=== PATIENT | male | born 1965 | race Caucasian/White ===

== ENCOUNTER 2016-06-16 13:13 | Emergency (ER) | payer MEDICAID ==
[2016-06-16 13:30] VITALS: BP 118/52
[2016-06-16] MEDS ORDERED: cefTRIAXone 1 GM Vial IM ONE (14:20)
[2016-06-16] MEDS ORDERED: Acetaminophen/HYDROcodone 325-7.5 MG Tab PO ONE (14:20)
--- NOTE | 2016-06-16 15:36 | EDM.PDOC ---
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 L toe now swollen and red h/o DM x 2y, A1c 7 PCP [facility] no h/o MRSA Allergies/ADRs: Allergies No Known Allergies Allergy (Verified 05/06/16 15:18) Home Medications: Ambulatory Orders Aspirin [Agnes Chewable Aspirin] 1 tab PO DAILY 12/24/13 [Confirmed 01/12/15] Divalproex Sodium [Depakote ER] 1,500 mg PO BEDTIME 12/24/13 [Confirmed 01/12/15 ] Furosemide [Lasix] 20 mg PO DAILY 12/24/13 [Confirmed 01/12/15] Gabapentin [Neurontin] 600 mg PO BID 12/24/13 [Confirmed 01/12/15] Hydrocodone/Acetaminophen [Hydrocodon-Acetaminophn 10-325] 1 tab PO BID [Confirmed 01/12/15] Levothyroxine [Synthroid] 50 mcg PO ACBRK 12/24/13 [Confirmed 01/12/15] Multivitamin [Multivitamins] 1 each PO DAILY 12/24/13 [Confirmed 01/12/15] Venlafaxine [Effexor XR] 300 mg PO DAILY 12/24/13 [Confirmed 01/12/15] Vitamin B Complex [B Complex] 1 cap PO DAILY 12/24/13 [Confirmed 01/12/15] atorvaSTATin [Lipitor] 40 mg PO BEDTIME 12/24/13 [Confirmed 01/12/15] rOPINIRole [Requip] 3 mg PO BID 12/24/13 [Confirmed 01/12/15] oxyCODONE HCl [Roxicodone] 5 mg PO DAILY PRN 11/13/14 [Confirmed 01/12/15] Meloxicam 15 mg PO DAILY 01/03/15 [Confirmed 01/12/15] Levofloxacin [Levaquin] 500 mg PO Q24H #10 tablet 01/04/15 [Confirmed 01/12/15] Acetaminophen/HYDROcodone [[place] 325-5 MG] 1 tab PO Q6H PRN #10 tab 06/16/16 Clindamycin Hcl [IMW: Clindamycin HCl] 300 mg PO QID #40 cap 06/16/16 Sulfamethoxazole/Trimethoprim [Sulfamethoxazole-Tmp Ds Tablet] 1 each PO BID # 20 tablet 06/16/16 Past Medical History Other Cardiovascular History: high triglycerides Other Musculoskeletal History: ulcers to bilat feet. R & L gt toes, 3rd toe R foot, 3& 5th toes L foot. Numerous broken bones Other Dermatologic History: ulcers to bilat feet. R & L gt toes, 3rd toe R foot , 3& 5th toes L foot. Open wound on toe 'months.' - Past Surgical History Other Musculoskeletal Surgeries/Procedures:: R shoulder rotator cuff surg, carpal tunnel Social & Family History - Family History Family Medical History: Noncontributory - Tobacco Use Smoking Status *Q: Current Every Day Smoker Years of Tobacco use: 30 Packs/Tins Daily: 1 Used Tobacco, but Quit: No Second Hand Smoke Exposure: Yes - Caffeine Use Caffeine Use: Reports: Coffee - Alcohol Use Days Per Week of Alcohol Use: 0 - Recreational Drug Use Recreational Drug Use: Yes Drug Use in Last 12 Months: Yes Recreational Drug Type: Reports: Marijuana/Hashish Review of Systems - Review of Systems Review Of Systems: See Below Constitutional: Reports: no symptoms Eyes: Reports: no symptoms Ears: Reports: no symptoms Nose: Reports: no symptoms Mouth/Throat: Reports: no symptoms Respiratory: Reports: no symptoms Cardiovascular: Reports: no symptoms GI/Abdominal: Reports: No symptoms Genitourinary: Reports: no symptoms Musculoskeletal: Reports: foot pain Skin: Reports: no symptoms Neurological: Reports: no symptoms Psychiatric: Reports: no symptoms Trauma Exam - Physical Exam Exam: See Below Exam Limited By: No limitations General Appearance: Reports: alert, mild distress Head: Reports: atraumatic, normocephalic Neck: Reports: non-tender Respiratory Exam: Reports: no respiratory distress, lungs clear, normal breath sounds Cardiovascular: Reports: regular rate, rhythm, no edema, no rub Skin: Reports: Other (R great toe with think callus on the lower 1/2 on the inferior aspect, there is cracking and a central opening in the callus over proximal 1st phalange of 5 x 3 cm, into fat layer, no necrosis, no active d/c, toe is inc'd size 25% with slight red and slight warmth. L groin has mild tender on the inner aspect of the thigh and across the inferior groin, there is slight fullness, however no discrete LNs are palpated. No red streaks.) Course - Vital Signs Last Recorded V/S: Last Vital Signs Temp 36.5 C 06/16/16 13:20 Pulse 79 06/16/16 13:20 Resp 18 06/16/16 13:20 BP 118/52 L 06/16/16 13:20 Pulse Ox 99 06/16/16 13:20 - Orders/Labs/Meds Orders: Active Orders 24 hr Category Date Time Status Foot Comp Min 3V Lt [CR] Stat Exams 06/16/16 14:15 Taken CULTURE-TISSUE [MREF] Stat Lab 06/16/16 15:12 Ordered Sulfamethoxazole/Trimethoprim [Septra DS] Med 06/17/16 09:00 Active 1 tab PO DAILY Medication Orders Trimethoprim/Sulfamethoxazole (Septra Ds) 1 tab PO DAILY MADHU Labs: Laboratory Tests 06/16/16 06/16/16 Range/Units 14:40 14:40 WBC 9.4 (4.5-12.0) X10-3/uL RBC 4.45 (4.30-5.75) x10(6)uL Hgb 13.1 (11.5-15.5) g/dL Hct 40.4 (30.0-51.3) % MCV 90.8 (80-96) fL MCH 29.5 (27.7-33.6) pg MCHC 32.5 (32.2-35.4) g/dL RDW 14.0 (11.5-15.5) % Plt Count 258 (125-369) X10(3)uL MPV 8.1 (7.4-10.4) fL Neut % (Auto) 75.2 (46-82) % Lymph % (Auto) 10.5 L (13-37) % [place] % (Auto) 13.2 H (4-12) % Eos % (Auto) 1 (1.0-5.0) % Baso % (Auto) 0 (0-2) % Neut # 7.1 (1.6-8.3) # Lymph # 1.0 (0.6-5.0) # [place] # 1.2 (0.0-1.3) # Eos # 0.1 (0.0-0.8) # Baso # 0.0 (0.0-0.2) # Sodium 140 (135-145) mmol/L Potassium 3.8 (3.5-5.3) mmol/L Chloride 106 (100-110) mmol/L Carbon Dioxide 27 (23-29) mmol/L BUN 13 (5-20) mg/dL Creatinine 0.8 (0.6-1.3) mg/dL Est Cr Clr Drug Dosing TNP Estimated GFR (MDRD) > 60 (>60) BUN/Creatinine Ratio 16.3 (9-20) Glucose 99 (80-116) mg/dL Calcium 8.7 (8.6-10.2) mg/dL Total Bilirubin 0.5 (0.1-1.3) mg/dL AST 22 D (5-27) IU/L ALT 27 H D (14-26) IU/L Alkaline Phosphatase 52 L (56-112) IU/L C-Reactive Protein 1.5 H (0.0-1.0) mg/dL Total Protein 8.0 (6.0-8.0) g/dL Albumin 4.1 (3.5-5.2) g/dL Globulin 3.9 g/dL Albumin/Globulin Ratio 1.1 Meds: Medications Generic Name Dose Route Start Last Admin Trade Name Freq PRN Reason Stop Dose Admin Trimethoprim/Sulfamethoxazole 1 tab 06/17/16 09:00 Septra Ds PO DAILY MADHU Discontinued Medications Generic Name Dose Route Start Last Admin Trade Name Freq PRN Reason Stop Dose Admin Acetaminophen/Hydrocodone Bitart 1 tab 06/16/16 14:20 [place] 325-7.5 Mg PO 06/16/16 14:21 Q3H ONE Ceftriaxone Sodium 1 gm 06/16/16 14:20 Rocephin IM 06/16/16 14:21 ONETIME ONE - Re-Assessments/Exams Free Text/Narrative Re-Assessment/Exam: 06/16/16 15:36 WBC wnl, slight inc of CRP, Dr Hoyt is here tomorrow, will arrange for pt to be seen Departure - Departure Time of Disposition: 15:36 Disposition: Home, Self-Care 01 Condition: fair Clinical Impression: Diabetic foot ulcer, Inguinal lymphadenopathy Prescriptions: Acetaminophen/HYDROcodone [[place] 325-5 MG] 1 tab PO Q6H PRN #10 tab PRN Reason: Pain Clindamycin Hcl [IMW: Clindamycin HCl] 300 mg PO QID #40 cap Sulfamethoxazole/Trimethoprim [Sulfamethoxazole-Tmp Ds Tablet] 1 each PO BID # 20 tablet Forms: ED Department Discharge Additional Instructions: For infection, take clindamycin 300 mg 1 capsule 4 times a day for 10 days. For infection, take trimethoprim-sulfamethoxazole DS 1 tab 2 times a day for 10 days. For pain, take ibuprofen 200 mg 3 tabs 4 times a day. For pain, as needed, take hydrocodone with acetaminophen 5/325 mg 1 tab every 6 hours. No alcohol within 8 hours of taking a hydrocodone. No work this week. See Dr Hoyt tomorrow. Return to ED if feeling worse. Call your Physician or Return to Emergency Department if: * Your condition worsens in any way. * You develop fever greater than 100.4. * You have vomiting that does not stop with medications. * You have pain that is not controlled with medications. - My Orders Last 24 Hours: My Active Orders 06/16/16 14:15 Foot Comp Min 3V Lt [CR] Stat 06/16/16 15:12 CULTURE-TISSUE [MREF] Stat 06/17/16 09:00 Sulfamethoxazole/Trimethoprim [Septra DS] 1 tab PO DAILY - Assessment/Plan Last 24 Hours: My Active Orders 06/16/16 14:15 Foot Comp Min 3V Lt [CR] Stat 06/16/16 15:12 CULTURE-TISSUE [MREF] Stat 06/17/16 09:00 Sulfamethoxazole/Trimethoprim [Septra DS] 1 tab PO DAILY
[2016-06-16] MEDS ORDERED: Sulfamethoxazole/Trimethoprim 800-160 MG Tab ONE (16:09)
[2016-06-17] MEDS ORDERED: Sulfamethoxazole/Trimethoprim 800-160 MG Tab PO SCH (09:00)
--- NOTE | 2016-06-17 11:41 | CR ---
INDICATION: Left great toe diabetic ulcer on the bottom of the big toe, question osteomyelitis. LEFT FOOT: Three views of the left foot revealed degenerative changes of mild to moderate degree at the first metatarsophalangeal joint and 1st metatarsal tarsal joint, as well as the 2nd metatarsal tarsal joint. Mild degenerative changes are noted at the talonavicular and calcaneocuboid joints and minimally at the 3rd and 5th metatarsal tarsal joints. In this patient with an apparent diabetic ulcer at the great toe, no definite evidence of osteomyelitis was identified. However, if osteomyelitis is strongly suspected clinically, examination with 3- phase nuclear bone imaging or possibly MRI may be helpful. Small and tiny posterior and plantar calcaneal spurs are noted respectively. IMPRESSION: 1. No definite osteomyelitis - 3-phase nuclear bone imaging and/or MRI may be helpful for further evaluation, as felt to be clinically necessary. 2. Osteoarthritis. MTDD
[2016-06-17] MEDS ORDERED: Sulfamethoxazole/Trimethoprim 800-160 MG Tab PO ONE (16:01)
== END 2016-06-16 16:25 | disposition home or self-care (01) ==
LOC: FB.ED 13:13
DX: E11.621 Type 2 diabetes mellitus with foot ulcer (principal); L97.512 Non-pressure chronic ulcer of other part of right foot with fat layer exposed; R59.0 Localized enlarged lymph nodes; F17.210 Nicotine dependence, cigarettes, uncomplicated
CPT/HCPCS: 36415; 73630; 80053; 85025; 86140; 87070; 87077; 87186; 87205; 96372; 99283; A9270; J0696

== ENCOUNTER 2016-08-29 00:43 | Emergency (ER) | payer MEDICAID ==
[2016-08-29] MEDS ORDERED: Ketorolac 60 MG/2 ML SDV IM ONE (01:54)
[2016-08-29] MEDS ORDERED: Gabapentin 300 MG Cap PO ONE (01:54)
--- NOTE | 2016-08-29 03:09 | EDM.PDOC ---
ED HPI GENERAL MEDICAL PROBLEM - General Chief Complaint: Lower Extremity Injury/Pain Stated Complaint: BOTH LEGS SWOLLEN Time Seen by Provider: 08/29/16 02:03 Source of Information: Reports: Patient History Limitations: Reports: No Limitations - History of Present Illness INITIAL COMMENTS - FREE TEXT/NARRATIVE: c/o b/l feet pain pt had been on gabapentin in past for neuropathy, not taking currently last saw PCP [facility] 2w ago, does not have f/u apt was in shelter 9d for DUI states he has multiple infections in his feet and will need to have surgeon Dr Lynne remove his L great toe, has had R great toe removed no f/c/d wearing an ankle bracelet, says it hurts altho no chafing or indentation of skin noted, pt asked me to cut of the ankle bracelet which I told him I could not do Bilateral Feet Pain Score (Numeric/FACES): 9 - Related Data Allergies Allergy/AdvReac Type Severity Reaction Status Date / Time No Known Allergies Allergy Verified 08/29/16 01:19 Home Meds: Home Meds Aspirin [Agnes Chewable Aspirin] 1 tab PO DAILY 12/24/13 [History] Furosemide [Lasix] 20 mg PO DAILY 12/24/13 [History] Levothyroxine [Synthroid] 50 mcg PO ACBRK 12/24/13 [History] Multivitamin [Multivitamins] 1 each PO DAILY 12/24/13 [History] Venlafaxine [Effexor XR] 300 mg PO DAILY 12/24/13 [History] Vitamin B Complex [B Complex] 1 cap PO DAILY 12/24/13 [History] atorvaSTATin [Lipitor] 40 mg PO BEDTIME 12/24/13 [History] rOPINIRole [Requip] 3 mg PO BID 12/24/13 [History] Meloxicam 15 mg PO DAILY 01/03/15 [History] Gabapentin [Neurontin] 300 mg PO BID #14 cap 08/29/16 [Rx] Past Medical History Other Cardiovascular History: high triglycerides Other Musculoskeletal History: ulcers to bilat feet. R & L gt toes, 3rd toe R foot, 3& 5th toes L foot. Numerous broken bones Endocrine/Metabolic History: Reports: Diabetes, Type II Other Endocrine/Metabolic History: diagnosed about 1 year ago Other Dermatologic History: ulcers to bilat feet. R & L gt toes, 3rd toe R foot , 3& 5th toes L foot. Open wound on toe 'months.' - Past Surgical History Other Musculoskeletal Surgeries/Procedures:: R shoulder rotator cuff surg, carpal tunnel Social & Family History - Family History Family Medical History: Noncontributory - Tobacco Use Smoking Status *Q: Current Every Day Smoker Years of Tobacco use: 30 Packs/Tins Daily: 1.5 Used Tobacco, but Quit: No Second Hand Smoke Exposure: Yes - Caffeine Use Caffeine Use: Reports: Coffee - Alcohol Use Days Per Week of Alcohol Use: 0 - Recreational Drug Use Recreational Drug Use: No Drug Use in Last 12 Months: Yes Recreational Drug Type: Reports: Marijuana/Hashish Review of Systems - Review of Systems Review Of Systems: See Below Constitutional: Reports: No Symptoms Eyes: Reports: No Symptoms Ears: Reports: No Symptoms Nose: Reports: No Symptoms Mouth/Throat: Reports: No Symptoms Respiratory: Reports: No Symptoms Cardiovascular: Reports: No Symptoms GI/Abdominal: Reports: No Symptoms Genitourinary: Reports: No Symptoms Musculoskeletal: Reports: No Symptoms Skin: Reports: No Symptoms Neurological: Reports: Paresthesia Psychiatric: Reports: No Symptoms Trauma Exam - Physical Exam Exam: See Below Exam Limited By: No Limitations General Appearance: Reports: Alert, WD/WN, Mild Distress Extremities: Other (skin intact, a dry callous of 2 cm is present at the MT head on the R and 1.5 cm on the L, R great toe surgically absent, L great toe is mildly swollen, no red, no warm, no d/c, no open ulcer, no blisters, both feeet sensitive to touch) Course - Vital Signs Last Recorded V/S: Last Vital Signs Temp 36.4 C 08/29/16 01:25 Pulse 81 08/29/16 01:25 Resp 20 08/29/16 01:25 BP 127/76 08/29/16 01:25 Pulse Ox 94 L 08/29/16 01:25 - Orders/Labs/Meds Labs: Laboratory Tests 08/29/16 08/29/16 Range/Units 02:05 02:05 WBC 5.9 (4.5-12.0) X10-3/uL RBC 3.95 L (4.30-5.75) x10(6)uL Hgb 12.3 (11.5-15.5) g/dL Hct 35.6 (30.0-51.3) % MCV 90.0 (80-96) fL MCH 31.1 (27.7-33.6) pg MCHC 34.5 (32.2-35.4) g/dL RDW 12.8 (11.5-15.5) % Plt Count 230 (125-369) X10(3)uL MPV 8.2 (7.4-10.4) fL Neut % (Auto) 53.0 (46-82) % Lymph % (Auto) 31.4 (13-37) % [place] % (Auto) 12.0 (4-12) % Eos % (Auto) 3 (1.0-5.0) % Baso % (Auto) 0 (0-2) % Neut # (Auto) 3.2 (1.6-8.3) # Lymph # (Auto) 1.8 (0.6-5.0) # [place] # (Auto) 0.7 (0.0-1.3) # Eos # (Auto) 0.2 (0.0-0.8) # Baso # (Auto) 0.0 (0.0-0.2) # Sodium 140 (135-145) mmol/L Potassium 3.5 (3.5-5.3) mmol/L Chloride 108 D (100-110) mmol/L Carbon Dioxide 24 (23-29) mmol/L BUN 26 H D (5-20) mg/dL Creatinine 0.7 (0.6-1.3) mg/dL Est Cr Clr Drug Dosing 138.57 mL/min Estimated GFR (MDRD) > 60 (>60) BUN/Creatinine Ratio 37.1 H (9-20) Glucose 125 H (80-116) mg/dL Calcium 8.4 L (8.6-10.2) mg/dL Total Bilirubin 0.5 (0.1-1.3) mg/dL AST 35 H D (5-27) IU/L ALT 37 H D (14-26) IU/L Alkaline Phosphatase 64 (56-112) IU/L C-Reactive Protein 1.0 (0.0-1.0) mg/dL Total Protein 6.9 (6.0-8.0) g/dL Albumin 4.0 (3.5-5.2) g/dL Globulin 2.9 g/dL Albumin/Globulin Ratio 1.4 Meds: Medications Discontinued Medications Generic Name Dose Route Start Last Admin Trade Name Cheng RODRIGUEZ Reason Stop Dose Admin Gabapentin 300 mg 08/29/16 01:54 08/29/16 02:09 Neurontin PO 08/29/16 01:55 300 mg ONETIME ONE Administration Ketorolac Tromethamine 60 mg 08/29/16 01:54 08/29/16 02:09 Toradol IM 08/29/16 01:55 60 mg ONETIME ONE Administration - Re-Assessments/Exams Free Text/Narrative Re-Assessment/Exam: 08/29/16 03:09 pt resting with eyes closed at time of d/c, pain better after meds Departure - Departure Time of Disposition: 03:10 Disposition: Left Without Being Seen 07 Condition: good Clinical Impression: Diabetic neuropathy - Discharge Information Prescriptions: Gabapentin [Neurontin] 300 mg PO BID #14 cap Instructions: Neuropathic Pain Forms: ED Department Discharge Additional Instructions: Your labs indicate no evidence of infection. However, you labs indicate that you are behind on fluids. You will want to drink at least 2 liters of fluids without caffeine, which will help with pain. For pain, take gabapentin 300 mg 1 tab 2 times a day for 1 week. For pain, take ibuprofen 200 mg 3 tabs and acetaminophen 325 mg 2 tabs 4 times a day. For pain, soak feet in cool water for 15 minutes every 2 hours as needed. See your physician today and tomorrow.
[2016-08-29 03:33] VITALS: BP 121/68
== END 2016-08-29 03:25 | disposition home or self-care (01) ==
LOC: FB.ED 00:43
DX: E11.40 Type 2 diabetes mellitus with diabetic neuropathy, unspecified (principal); F17.210 Nicotine dependence, cigarettes, uncomplicated; Z98.890 Other specified postprocedural states; Z79.82 Long term (current) use of aspirin; Z79.899 Other long term (current) drug therapy
CPT/HCPCS: 36415; 80053; 85025; 86140; 96372; 99284; A9270; J1885

== ENCOUNTER 2016-10-26 22:09 | Emergency (ER) | payer MEDICAID ==
--- NOTE | 2016-10-26 22:19 | EDM.PDOC ---
ED HPI GENERAL MEDICAL PROBLEM - General Stated Complaint: DENTAL PAIN Time Seen by Provider: 10/26/16 22:18 Source of Information: Reports: Patient History Limitations: Reports: No Limitations - History of Present Illness INITIAL COMMENTS - FREE TEXT/NARRATIVE: Presents with Dental pain. Reports that he accidentally fractures his upper incisor tooth about 2-3 weeks ago and has been having difficulty getting to see a dentist. Rates the pain as 6/10. He also has associated dental caries which causes him to have pain at baseline. Presented to the ER on account of worsening of symptoms Duration: Week(s): (may have happened 2-3 weeks) Quality: Reports: Sharp Improves with: Reports: None Worsens with: Reports: None Associated Symptoms: Reports: No Other Symptoms - Related Data Allergies Allergy/AdvReac Type Severity Reaction Status Date / Time No Known Allergies Allergy Verified 08/29/16 01:19 Home Meds: Home Meds Aspirin [Agnes Chewable Aspirin] 1 tab PO DAILY 12/24/13 [History] Furosemide [Lasix] 20 mg PO DAILY 12/24/13 [History] Levothyroxine [Synthroid] 50 mcg PO ACBRK 12/24/13 [History] Multivitamin [Multivitamins] 1 each PO DAILY 12/24/13 [History] Venlafaxine [Effexor XR] 300 mg PO DAILY 12/24/13 [History] Vitamin B Complex [B Complex] 1 cap PO DAILY 12/24/13 [History] atorvaSTATin [Lipitor] 40 mg PO BEDTIME 12/24/13 [History] rOPINIRole [Requip] 3 mg PO BID 12/24/13 [History] Meloxicam 15 mg PO DAILY 01/03/15 [History] Gabapentin [Neurontin] 300 mg PO BID #14 cap 08/29/16 [Rx] traMADol HCl [Tramadol HCl] 50 mg PO Q6H PRN #20 tablet 10/26/16 [Rx] Past Medical History Other Cardiovascular History: high triglycerides Other Musculoskeletal History: ulcers to bilat feet. R & L gt toes, 3rd toe R foot, 3& 5th toes L foot. Numerous broken bones Endocrine/Metabolic History: Reports: Diabetes, Type II Other Endocrine/Metabolic History: diagnosed about 1 year ago Other Dermatologic History: ulcers to bilat feet. R & L gt toes, 3rd toe R foot , 3& 5th toes L foot. Open wound on toe 'months.' - Past Surgical History Other Musculoskeletal Surgeries/Procedures:: R shoulder rotator cuff surg, carpal tunnel Social & Family History - Family History Family Medical History: Noncontributory - Tobacco Use Smoking Status *Q: Current Every Day Smoker Years of Tobacco use: 30 Packs/Tins Daily: 1.5 Used Tobacco, but Quit: No Second Hand Smoke Exposure: Yes - Caffeine Use Caffeine Use: Reports: Coffee - Alcohol Use Days Per Week of Alcohol Use: 0 - Recreational Drug Use Recreational Drug Use: No Drug Use in Last 12 Months: Yes Recreational Drug Type: Reports: Marijuana/Hashish ED ROS GENERAL - Review of Systems Review Of Systems: See Below Constitutional: Reports: No Symptoms HEENT: Reports: No Symptoms Respiratory: Reports: No Symptoms Cardiovascular: Reports: No Symptoms Endocrine: Reports: No Symptoms GI/Abdominal: Reports: No Symptoms : Reports: No Symptoms Musculoskeletal: Reports: No Symptoms Skin: Reports: No Symptoms Neurological: Reports: No Symptoms Psychiatric: Reports: No Symptoms Hematologic/Lymphatic: Reports: No Symptoms Immunologic: Reports: No Symptoms ED EXAM, GENERAL - Physical Exam Exam: See Below Exam Limited By: No Limitations General Appearance: Alert, WD/WN, No Apparent Distress Ears: Normal External Exam, Normal Canal, Hearing Grossly Normal, Normal TMs Nose: Normal Inspection, Normal Mucosa Throat/Mouth: Normal Inspection, Normal Lips, Other (dental caries, fractured incisor teeth) Neck: Normal Inspection, Supple, Non-Tender, Full Range of Motion Respiratory/Chest: No Respiratory Distress, Lungs Clear, Normal Breath Sounds Cardiovascular: Normal Peripheral Pulses, Regular Rate, Rhythm, No Edema GI/Abdominal: Normal Bowel Sounds, Soft, Non-Tender (Male) Exam: Deferred Rectal (Males) Exam: Deferred Back Exam: Normal Inspection Neurological: Alert, Oriented, CN II-XII Intact, Normal Cognition Psychiatric: Normal Affect, Normal Mood Skin Exam: Warm Lymphatic: No Adenopathy Course - Orders/Labs/Meds Meds: Medications Discontinued Medications Generic Name Dose Route Start Last Admin Trade Name Freq PRN Reason Stop Dose Admin Ketorolac Tromethamine 30 mg 10/26/16 22:33 10/26/16 22:41 Toradol IM 10/26/16 22:34 30 mg ONETIME ONE Administration Departure - Departure Time of Disposition: 22:56 Disposition: Home, Self-Care 01 Condition: Good Clinical Impression: Dental caries - Discharge Information Prescriptions: traMADol HCl [Tramadol HCl] 50 mg PO Q6H PRN #20 tablet PRN Reason: Pain Instructions: Dental Caries, Tooth Injuries Referrals: [facility]ambi [facility] [employer] [Primary Care Provider] - Forms: ED Department Discharge Additional Instructions: Make appointment to see Dentist Follow with PCP Tramadol for pain Return if symptoms worsen Call your Physician or Return to Emergency Department if: * Your condition worsens in any way. * You develop fever greater than 100.4. * You have vomitting that does not stop with medications. * You have pain that is not controlled with medications.
[2016-10-26] MEDS ORDERED: Ketorolac 30 MG/ML SDV IM ONE (22:33)
[2016-10-26] MEDS ORDERED: traMADol 50 MG Tab PO ONE (22:34)
[2016-10-27 01:10] VITALS: BP 133/80
== END 2016-10-26 23:15 | disposition home or self-care (01) ==
LOC: FB.ED 22:09
DX: K02.9 Dental caries, unspecified (principal); E11.9 Type 2 diabetes mellitus without complications; F17.210 Nicotine dependence, cigarettes, uncomplicated; Z79.82 Long term (current) use of aspirin; Z79.899 Other long term (current) drug therapy
CPT/HCPCS: 96372; 99282; J1885; A9270-GY

== ENCOUNTER 2016-11-21 01:22 | Emergency (ER) | payer MEDICAID ==
[2016-11-21 01:49] VITALS: BP 134/85
[2016-11-21] MEDS ORDERED: Ketorolac 30 MG/ML SDV IM ONE (01:58)
--- NOTE | 2016-11-21 01:58 | EDM.PDOC ---
ED HPI GENERAL MEDICAL PROBLEM - General Chief Complaint: Diabetic Complaint Stated Complaint: BOTH TOE INFECTED/DIABETES,TOOTHACHE Time Seen by Provider: 11/21/16 01:58 Source of Information: Reports: Patient History Limitations: Reports: No Limitations - History of Present Illness INITIAL COMMENTS - FREE TEXT/NARRATIVE: 51 yo gentleman with multiple medical problems as listed in his chart including DM peripheral neuropathy, DM foot, chronic dental pain amongst other listed problems. Presented to the ER with worsening DM foot pain which he thinks its related to his neuropathy Rates the Foot pain as 7/10 with no obvious relieving factors but aggravated by movement. No fever. Also c/o dental pain as well as back pain. Reports that Tramadol had worked in the past Onset: Gradual Duration: Day(s): (Chronic problem but worse over the past few days) Location: Reports: Lower Extremity, Left, Lower Extremity, Right Quality: Reports: Sharp Improves with: Reports: None Worsens with: Reports: None Associated Symptoms: Reports: No Other Symptoms - Related Data Allergies Allergy/AdvReac Type Severity Reaction Status Date / Time No Known Allergies Allergy Verified 11/21/16 01:42 Home Meds: Home Meds Furosemide [Lasix] 20 mg PO DAILY 12/24/13 [History] Levothyroxine [Synthroid] 50 mcg PO ACBRK 12/24/13 [History] Venlafaxine [Effexor XR] 300 mg PO DAILY 12/24/13 [History] rOPINIRole [Requip] 3 mg PO BID 12/24/13 [History] Gabapentin [Neurontin] 300 mg PO BID #14 cap 08/29/16 [Rx] Diclofenac Sodium [IMW: Diclofenac Sodium] 75 mg PO BID 11/21/16 [History] Fenofibrate Nanocrystallized [Fenofibrate] 145 mg PO DAILY 11/21/16 [History] Loperamide [Imodium] 2 mg PO DAILY 11/21/16 [History] Omeprazole 40 mg PO DAILY 11/21/16 [History] Rosuvastatin [Crestor] 20 mg PO DAILY 11/21/16 [History] metroNIDAZOLE [Flagyl] 500 mg PO DAILY 11/21/16 [History] traMADol HCl [Tramadol HCl] 50 mg PO Q6H PRN #15 tablet 11/21/16 [Rx] Past Medical History Other Cardiovascular History: high triglycerides Other Musculoskeletal History: ulcers to bilat feet. R & L gt toes, 3rd toe R foot, 3& 5th toes L foot. Numerous broken bones Endocrine/Metabolic History: Reports: Diabetes, Type II Other Endocrine/Metabolic History: diagnosed about 1 year ago Other Dermatologic History: ulcers to bilat feet. R & L gt toes, 3rd toe R foot , 3& 5th toes L foot. Open wound on toe 'months.' - Past Surgical History Other Musculoskeletal Surgeries/Procedures:: R shoulder rotator cuff surg, carpal tunnel Social & Family History - Family History Family Medical History: Noncontributory - Tobacco Use Smoking Status *Q: Current Every Day Smoker Years of Tobacco use: 30 Packs/Tins Daily: 1 Used Tobacco, but Quit: No Second Hand Smoke Exposure: Yes - Caffeine Use Caffeine Use: Reports: Coffee, Soda - Alcohol Use Days Per Week of Alcohol Use: 0 - Recreational Drug Use Recreational Drug Use: No Drug Use in Last 12 Months: Yes Recreational Drug Type: Reports: Marijuana/Hashish ED ROS GENERAL - Review of Systems Review Of Systems: See Below Constitutional: Reports: No Symptoms HEENT: Reports: No Symptoms Respiratory: Reports: No Symptoms Cardiovascular: Reports: No Symptoms Endocrine: Reports: No Symptoms GI/Abdominal: Reports: No Symptoms Musculoskeletal: Reports: Foot Pain Skin: Reports: No Symptoms Neurological: Reports: No Symptoms Psychiatric: Reports: No Symptoms Hematologic/Lymphatic: Reports: No Symptoms Immunologic: Reports: No Symptoms ED EXAM GENERAL NO PERIP PULSE - Physical Exam Exam: See Below Exam Limited By: No Limitations General Appearance: Alert, WD/WN, No Apparent Distress Ears: Normal External Exam, Normal Canal, Hearing Grossly Normal, Normal TMs Throat/Mouth: Normal Inspection, Normal Lips, Normal Teeth, Normal Oropharynx, Normal Voice Head: Atraumatic, Normocephalic Neck: Normal Inspection, Supple Respiratory/Chest: No Respiratory Distress, Lungs Clear Cardiovascular: Normal Peripheral Pulses, Regular Rate, Rhythm, No Edema, No JVD , No Murmur GI/Abdominal: Normal Bowel Sounds, Soft, Non-Tender, No Organomegaly Back Exam: Normal Inspection, Full Range of Motion Extremities: Normal Inspection, Normal Range of Motion, Non-Tender Neurological: Alert, Oriented, CN II-XII Intact, Normal Cognition Psychiatric: Normal Affect, Normal Mood Skin Exam: Warm Lymphatic: No Adenopathy Course - Vital Signs Last Recorded V/S: Last Vital Signs Temp 36.7 C 11/21/16 01:35 Pulse 90 11/21/16 01:35 Resp 18 11/21/16 01:35 BP 134/85 11/21/16 01:35 Pulse Ox 95 11/21/16 01:35 - Orders/Labs/Meds Labs: Laboratory Tests 11/21/16 Range/Units 01:40 POC Glucose 115 (80-116) mg/dL Meds: Medications Discontinued Medications Generic Name Dose Route Start Last Admin Trade Name Freq PRN Reason Stop Dose Admin Ketorolac Tromethamine 30 mg 11/21/16 01:58 11/21/16 02:05 Toradol IM 11/21/16 01:59 30 mg ONETIME ONE Administration Departure - Departure Time of Disposition: 02:14 Disposition: Home, Self-Care 01 Condition: Good Clinical Impression: Chronic foot pain Qualifiers: Laterality: unspecified laterality Qualified Code(s): M79.673 - Pain in unspecified foot - Discharge Information Prescriptions: traMADol HCl [Tramadol HCl] 50 mg PO Q6H PRN #15 tablet PRN Reason: Pain Instructions: Diabetes and Foot Care, Peripheral Neuropathy, Diabetic Neuropathy Referrals: Bambi Esquivel POLICE COMMUNICATIONS OPERATOR [Primary Care Provider] - Forms: ED Department Discharge Additional Instructions: Follow with PCP Tramadol for pain Return if symptoms worsen. Call your Physician or Return to Emergency Department if: * Your condition worsens in any way. * You develop fever greater than 100.4. * You have vomitting that does not stop with medications. * You have pain that is not controlled with medications.
[2016-11-21] MEDS ORDERED: traMADol 50 MG Tab PO ONE (13:49)
== END 2016-11-21 02:15 | disposition home or self-care (01) ==
LOC: FB.ED 01:22
DX: G89.29 Other chronic pain (principal); M79.673 Pain in unspecified foot; E11.42 Type 2 diabetes mellitus with diabetic polyneuropathy; F17.210 Nicotine dependence, cigarettes, uncomplicated
CPT/HCPCS: 82962; 96372; 99282; A9270; J1885

== ENCOUNTER 2016-11-28 06:17 | Emergency (ER) | payer MEDICAID ==
[2016-11-28] MEDS ORDERED: Dextrose 5%-Lactated Ringers 1,000 ML IV SCH (07:15)
[2016-11-28] MEDS ORDERED: Sodium Chloride 0.9% 1,000 ML IV SCH (09:30)
[2016-11-28 12:14] VITALS: BP 140/85
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
== END 2016-11-28 11:45 | disposition home or self-care (01) ==
LOC: FB.ED 06:17
DX: E86.0 Dehydration (principal); Z79.899 Other long term (current) drug therapy; F32.9 Major depressive disorder, single episode, unspecified
CPT/HCPCS: 36415; 80053; 80305; 81001; 82150; 83605; 83880; 85025; 85610; 96360; 96361; 99284; J7040; J7042

== ENCOUNTER 2016-12-27 08:07 | Emergency (ER) | payer MEDICAID ==
[2016-12-27] MEDS ORDERED: Ketorolac 60 MG/2 ML SDV IM ONE (08:17)
[2016-12-27] MEDS ORDERED: Cyclobenzaprine 10 MG Tab PO SCH (08:30)
--- NOTE | 2016-12-27 10:17 | EDM.PDOC ---
ED HPI GENERAL MEDICAL PROBLEM - General Stated Complaint: BACK AND NECK PAIN Time Seen by Provider: 12/27/16 08:20 Source of Information: Reports: Patient History Limitations: Reports: No Limitations - History of Present Illness INITIAL COMMENTS - FREE TEXT/NARRATIVE: Patient is a 51 year old man with a history of chronic neck and low back pain who feels he must have slept on his neck in the wrong way yesterday. Last night his left neck, upper and lower backs all spasmed terribly and he has pain in a 9 /10 rate. No fever or chills and no loss of bowel or bladder control but he does have pain radiating from the left lower back into the buttocks and down the left leg. He would like something for pain. Onset Date: 12/26/16 Onset Time: 09:00 Duration: Day(s): (1) Location: Reports: Neck, Back, Lower Extremity, Left Quality: Reports: Same as Previous Episode, Sharp, Throbbing Severity: Severe Improves with: Reports: None Worsens with: Reports: None Context: Reports: Other (History of chronic neck and back problems with bulging discs.) Associated Symptoms: Reports: No Other Symptoms Treatments LEG ASSEMBLER: Reports: NSAIDS - Related Data Allergies Allergy/AdvReac Type Severity Reaction Status Date / Time No Known Allergies Allergy Verified 11/28/16 06:49 Home Meds: Home Meds Furosemide [Lasix] 20 mg PO DAILY 12/24/13 [History] Levothyroxine [Synthroid] 50 mcg PO ACBRK 12/24/13 [History] Venlafaxine [Effexor XR] 300 mg PO DAILY 12/24/13 [History] rOPINIRole [Requip] 3 mg PO BID 12/24/13 [History] Diclofenac Sodium [IMW: Diclofenac Sodium] 75 mg PO BID 11/21/16 [History] Fenofibrate Nanocrystallized [Fenofibrate] 145 mg PO DAILY 11/21/16 [History] Omeprazole 40 mg PO DAILY 11/21/16 [History] Ondansetron [Zofran ODT] 4 mg PO Q6H PRN #10 tab.dis 11/28/16 [Rx] Past Medical History Other Cardiovascular History: high triglycerides Other Musculoskeletal History: ulcers to bilat feet. R & L gt toes, 3rd toe R foot, 3& 5th toes L foot. Numerous broken bones Endocrine/Metabolic History: Reports: Diabetes, Type II Other Endocrine/Metabolic History: diagnosed about 1 year ago Other Dermatologic History: ulcers to bilat feet. R & L gt toes, 3rd toe R foot , 3& 5th toes L foot. Open wound on toe 'months.' - Past Surgical History Other Musculoskeletal Surgeries/Procedures:: R shoulder rotator cuff surg, carpal tunnel Social & Family History - Family History Family Medical History: Noncontributory - Tobacco Use Smoking Status *Q: Current Every Day Smoker Years of Tobacco use: 35 Packs/Tins Daily: 1 Used Tobacco, but Quit: No Second Hand Smoke Exposure: Yes - Caffeine Use Caffeine Use: Reports: Coffee, Soda - Alcohol Use Days Per Week of Alcohol Use: 0 - Recreational Drug Use Recreational Drug Use: No Drug Use in Last 12 Months: Yes Recreational Drug Type: Reports: Marijuana/Hashish ED ROS GENERAL - Review of Systems Review Of Systems: See Below Constitutional: Reports: No Symptoms HEENT: Reports: No Symptoms Respiratory: Reports: No Symptoms Cardiovascular: Reports: No Symptoms Endocrine: Reports: No Symptoms GI/Abdominal: Reports: No Symptoms : Reports: No Symptoms Musculoskeletal: Reports: Neck Pain (As per HPI.), Back Pain Skin: Reports: No Symptoms Neurological: Reports: Other (Pain at times down left leg) Psychiatric: Reports: No Symptoms Hematologic/Lymphatic: Reports: No Symptoms ED EXAM,LOWER BACK PAIN/INJURY - Physical Exam Exam: See Below Exam Limited By: No Limitations General Appearance: Alert, WD/WN, No Apparent Distress Eye Exam: Bilateral Eye: EOMI, Normal Fundi, Normal Inspection, PERRL Ears: Normal External Exam, Normal Canal, Hearing Grossly Normal, Normal TMs Nose: Normal Inspection, Normal Mucosa, No Blood Throat/Mouth: Normal Inspection, Normal Lips, Normal Teeth, Normal Gums, Normal Oropharynx, Normal Voice, No Airway Compromise Head: Atraumatic, Normocephalic Neck: Limited Range of Motion, Tender Lateral (With muscle spasm left side of neck.) Respiratory/Chest: No Respiratory Distress, Lungs Clear, Normal Breath Sounds, No Accessory Muscle Use, Chest Non-Tender Cardiovascular: Normal Peripheral Pulses, Regular Rate, Rhythm, No Edema, No Gallop, No JVD, No Murmur, No Rub GI/Abdominal: Normal Bowel Sounds, Soft, Non-Tender, No Organomegaly, No Distention, No Abnormal Bruit, No Mass Back Exam: Decreased Range of Motion, Muscle Spasm (On whole left side of back from his neck through the thoracic and lumbar paraspinals.) Extremities: Normal Inspection, Normal Range of Motion, Non-Tender, No Pedal Edema, Normal Capillary Refill Neurological: Alert, Normal Mood/Affect, Normal Dorsiflexion, CN II-XII Intact, Normal Plantar Flexion, Normal Gait, Normal Reflexes, No Motor/Sensory Deficits , Oriented x 3 DTR - Lower Extremities: 2+: Knee (R), Knee (L), Ankle (R), Ankle (L) Psychiatric: Normal Affect, Normal Mood Skin Exam: Warm, Dry, Intact, Normal Color, No Rash Lymphatic: No Adenopathy Course - Vital Signs Text/Narrative:: Uneventful ED course. He was given IV Toradol and oral Flexeril and these gave him a little relief. He made an appointment with his PCP while waitiing for the medications to take effect and left to go to that appointment. - Orders/Labs/Meds Orders: Active Orders 24 hr Category Date Time Status Cyclobenzaprine [Flexeril] Med 12/27/16 08:30 Active 10 mg PO DAILY Medication Orders Cyclobenzaprine HCl (Flexeril) 10 mg PO DAILY MADHU Last Admin: 12/27/16 08:48 Dose: 10 mg Meds: Medications Generic Name Dose Route Start Last Admin Trade Name Freq PRN Reason Stop Dose Admin Cyclobenzaprine HCl 10 mg 12/27/16 08:30 12/27/16 08:48 Flexeril PO 10 mg DAILY MADHU Administration Discontinued Medications Generic Name Dose Route Start Last Admin Trade Name Freq PRN Reason Stop Dose Admin Ketorolac Tromethamine 60 mg 12/27/16 08:17 12/27/16 08:26 Toradol IM 12/27/16 08:18 60 mg ONETIME ONE Administration Departure - Departure Time of Disposition: 09:45 Disposition: Home, Self-Care 01 Condition: Good Clinical Impression: Spasmodic torticollis, Lumbago syndrome - Discharge Information Referrals: Bambi Esquivel AIRPORT ENGINEER [Primary Care Provider] - - My Orders Last 24 Hours: My Active Orders 12/27/16 08:30 Cyclobenzaprine [Flexeril] 10 mg PO DAILY - Assessment/Plan Last 24 Hours: My Active Orders 12/27/16 08:30 Cyclobenzaprine [Flexeril] 10 mg PO DAILY
[2016-12-27 19:02] VITALS: BP 115/74
== END 2016-12-27 09:40 | disposition home or self-care (01) ==
LOC: FB.ED 08:07
DX: G24.3 Spasmodic torticollis (principal); M54.5 Low back pain; E11.9 Type 2 diabetes mellitus without complications; F17.210 Nicotine dependence, cigarettes, uncomplicated; Z79.899 Other long term (current) drug therapy
CPT/HCPCS: 96372; 99283; A9270; J1885

== ENCOUNTER 2016-12-28 20:33 | Emergency (ER) | payer MEDICAID ==
[2016-12-28 21:20] VITALS: BP 120/87
[2016-12-28] MEDS ORDERED: Ketorolac 60 MG/2 ML SDV IM ONE (21:23)
[2016-12-28] MEDS ORDERED: Cephalexin 500 MG Cap PO ONE (21:28)
[2016-12-28] MEDS ORDERED: Diphtheria,Pertussis(Acell),Tetanus Vaccine 0.5 ML SDV IM ONE (21:34)
--- NOTE | 2016-12-30 09:37 | ER ---
DATE SEEN: 12/28/2016 CHIEF COMPLAINT: Injury of the left thumb. HISTORY OF PRESENT ILLNESS: This is a 51-year-old male diabetic, who complains of pain in the left thumb and swelling after he injured yesterday while cleaning his toes. He had a small puncture wound on the thumb, at the base, which has now caused pain and swelling of the whole arm, but no fever. REVIEW OF SYSTEMS: Negative for any systemic symptoms, vomiting, or rash. MEDICATIONS: Please see the nurse's notes. PHYSICAL EXAMINATION: VITAL SIGNS: Blood pressure is normal. He is afebrile. EXTREMITIES: Left thumb reveals just a tiny puncture wound on the PIP dorsal aspect, tender to palpation. There is mild swelling around the wound locally and tenderness of the forearm, but has full range of motion at the wrist and first MCP joint. IMPRESSION: Injury, left hand. PLAN: I gave him ketorolac 60 mg IM. A prescription for cephalexin 500 mg p.o. t.i.d. to prevent infection of the wound was given and tetanus was addressed, appropriately. Advised to follow up on Friday, as needed. TIME SEEN: 2119 hours. /[id number] JAMES/MIRI
== END 2016-12-28 21:45 | disposition home or self-care (01) ==
LOC: FB.ED 20:33
DX: S61.032A Puncture wound without foreign body of left thumb without damage to nail, initial encounter (principal); Z23 Encounter for immunization; X58.XXXA Exposure to other specified factors, initial encounter
CPT/HCPCS: 90471; 90715; 96372; 99282; J1885; A9270-GY

== ENCOUNTER 2016-12-29 12:08 | Emergency (ER) | payer MEDICAID ==
--- NOTE | 2016-12-29 12:23 | EDM.PDOC ---
ED HPI GENERAL MEDICAL PROBLEM - General Stated Complaint: LT HAND SWELLING Time Seen by Provider: 12/29/16 12:22 Source of Information: Reports: Patient History Limitations: Reports: No Limitations - History of Present Illness INITIAL COMMENTS - FREE TEXT/NARRATIVE: Presented to the ER with painful swelling of the Left Thumb/Hand. Was seen in the ER and given prescription for Keflex. He has only taken a dose and presents to the ER c/o pain on the Left Thumb. Rates pain as 5/10. He is yet to get some Ibuprofen for pain. No fever. He endorsed that the swelling is decreasing but would like to get something for pain Onset: Gradual, Other (Follow up from ER visit yesterday) Duration: Day(s): Location: Reports: Upper Extremity, Left Quality: Reports: Ache Severity: Moderate Worsens with: Reports: Movement Associated Symptoms: Reports: No Other Symptoms - Related Data Allergies Allergy/AdvReac Type Severity Reaction Status Date / Time No Known Allergies Allergy Verified 12/28/16 20:54 Home Meds: Home Meds Fenofibrate Nanocrystallized [Fenofibrate] 1 tab PO DAILY 12/28/16 [History] Furosemide [Lasix] 1 tab PO DAILY 12/28/16 [History] Levothyroxine [Synthroid] 1 tab PO DAILY 12/28/16 [History] Metaxalone 1 tab PO TID PRN 12/28/16 [History] Mirtazapine [Remeron] 15 mg PO BEDTIME 12/28/16 [History] Rosuvastatin [Crestor] 1 tab PO DAILY 12/28/16 [History] Triamcinolone Acetonide [Triamcinolone Acetonide 0.1% Crm] 1 dose TOP TID [History] Venlafaxine HCl [Venlafaxine ER] 1 cap PO DAILY 12/28/16 [History] rOPINIRole [Requip] 1 tab PO BID 12/28/16 [History] Past Medical History Other Cardiovascular History: high triglycerides Musculoskeletal History: Reports: Back Pain, Chronic Other Musculoskeletal History: ulcers to bilat feet. R & L gt toes, 3rd toe R foot, 3& 5th toes L foot. Numerous broken bones Endocrine/Metabolic History: Reports: Diabetes, Type II Other Endocrine/Metabolic History: diagnosed about 1 year ago Other Dermatologic History: ulcers to bilat feet. R & L gt toes, 3rd toe R foot , 3& 5th toes L foot. Open wound on toe 'months.' - Past Surgical History Other Musculoskeletal Surgeries/Procedures:: R shoulder rotator cuff surg, carpal tunnel Social & Family History - Family History Family Medical History: Noncontributory - Tobacco Use Smoking Status *Q: Current Every Day Smoker Years of Tobacco use: 31 Packs/Tins Daily: 1 Used Tobacco, but Quit: No Second Hand Smoke Exposure: Yes - Caffeine Use Caffeine Use: Reports: Coffee - Alcohol Use Days Per Week of Alcohol Use: 0 - Recreational Drug Use Recreational Drug Use: No Drug Use in Last 12 Months: Yes Recreational Drug Type: Reports: Marijuana/Hashish ED ROS GENERAL - Review of Systems Review Of Systems: ROS reveals no pertinent complaints other than HPI. Constitutional: Reports: No Symptoms HEENT: Reports: No Symptoms Respiratory: Reports: No Symptoms Cardiovascular: Reports: No Symptoms Endocrine: Reports: No Symptoms GI/Abdominal: Reports: No Symptoms : Reports: No Symptoms Musculoskeletal: Reports: Other (Painful swollen Left Thumb/Hand) Skin: Reports: No Symptoms Neurological: Reports: No Symptoms Psychiatric: Reports: No Symptoms Hematologic/Lymphatic: Reports: No Symptoms Immunologic: Reports: No Symptoms ED EXAM, GENERAL - Physical Exam Exam: See Below Exam Limited By: No Limitations General Appearance: Alert, WD/WN, No Apparent Distress Eye Exam: Bilateral Eye: EOMI, PERRL Ears: Normal External Exam, Normal Canal, Hearing Grossly Normal, Normal TMs Ear Exam: Bilateral Ear: Auricle Normal, TM normal Nose: Normal Inspection, Normal Mucosa, No Blood Throat/Mouth: Normal Inspection, Normal Lips, Normal Teeth Head: Atraumatic, Normocephalic Neck: Normal Inspection, Supple, Non-Tender, Full Range of Motion Respiratory/Chest: No Respiratory Distress, Lungs Clear, Normal Breath Sounds Cardiovascular: Normal Peripheral Pulses, Regular Rate, Rhythm, No Edema, No Gallop, No JVD, No Murmur GI/Abdominal: Normal Bowel Sounds, Soft, Non-Tender, No Organomegaly Back Exam: Normal Inspection, Full Range of Motion Extremities: Normal Inspection, Other (Left Thumb/Hand -- swollen, tender, erythematous) Psychiatric: Normal Affect, Normal Mood Skin Exam: Warm, Intact, Normal Color, No Rash Course - Vital Signs Last Recorded V/S: Last Vital Signs Temp 36.4 C 12/29/16 12:20 Pulse 87 12/29/16 12:20 Resp 20 12/29/16 12:20 BP 113/72 12/29/16 12:20 Pulse Ox 100 12/29/16 12:20 - Orders/Labs/Meds Meds: Medications Discontinued Medications Generic Name Dose Route Start Last Admin Trade Name Cheng PRN Reason Stop Dose Admin Ketorolac Tromethamine 30 mg 12/29/16 12:31 Toradol IM 12/29/16 12:32 ONETIME ONE Departure - Departure Time of Disposition: 12:39 Disposition: Home, Self-Care 01 Clinical Impression: Infected hand - Discharge Information Instructions: Fingertip Infection Referrals: Bambi Esquivel NP [Primary Care Provider] - Forms: ED Department Discharge, ED Summary Discharge Additional Instructions: Follow with PCP Ibuprofen for pain Return if symptoms worsen Call your Physician or Return to Emergency Department if: * Your condition worsens in any way. * You develop fever greater than 100.4. * You have vomitting that does not stop with medications. * You have pain that is not controlled with medications. - Problem List & Annotations (1) Infected hand SNOMED Code(s): 192354611 Code(s): L08.9 - LOCAL INFECTION OF THE SKIN AND SUBCUTANEOUS TISSUE, UNSP Status: Acute Priority: Medium Current Visit: Yes (2) Cellulitis SNOMED Code(s): 866290473 Code(s): L03.90 - CELLULITIS, UNSPECIFIED Status: Acute Priority: Medium Current Visit: No Qualifiers: Site of cellulitis: extremity Site of cellulitis of extremity: finger Laterality: left Qualified Code(s): L03.012 - Cellulitis of left finger - Problem List Review Problem List Initiated/Reviewed/Updated: Yes
[2016-12-29] MEDS ORDERED: Ketorolac 30 MG/ML SDV IM ONE (12:31)
[2016-12-29 12:32] VITALS: BP 113/72
== END 2016-12-29 12:45 | disposition home or self-care (01) ==
LOC: FB.ED 12:08
DX: L08.9 Local infection of the skin and subcutaneous tissue, unspecified (principal); E78.1 Pure hyperglyceridemia; E11.9 Type 2 diabetes mellitus without complications; F17.210 Nicotine dependence, cigarettes, uncomplicated; Z79.899 Other long term (current) drug therapy
CPT/HCPCS: 96372; 99283; J1885

== ENCOUNTER 2016-12-30 03:24 | Emergency (ER) | payer MEDICAID ==
[2016-12-30 03:37] VITALS: BP 119/95
[2016-12-30] MEDS ORDERED: Ketorolac 60 MG/2 ML SDV IM ONE (03:47)
[2016-12-30] MEDS ORDERED: cefTRIAXone 1,000 MG VIAL IM ONE (03:47)
[2016-12-30] MEDS ORDERED: Sulfamethoxazole/Trimethoprim 800-160 MG Tab PO ONE (03:48)
--- NOTE | 2016-12-30 03:58 | EDM.PDOC ---
ED HPI GENERAL MEDICAL PROBLEM - General Chief Complaint: Upper Extremity Injury/Pain Stated Complaint: LT HAND SWELLING Time Seen by Provider: 12/30/16 03:40 Source of Information: Reports: Patient, Old Records History Limitations: Reports: No Limitations - History of Present Illness INITIAL COMMENTS - FREE TEXT/NARRATIVE: 51 yo male was seen here on the for an infection in his L hand. He was started on Keflex for this. Is not running a fever. Returned once since then for pain and was given Toradol. Returns tonight also now for discomfort. Records show a pHx of AODM. Onset: Gradual Onset Date: 12/28/16 Duration: Hour(s):, Getting Worse Location: Reports: Upper Extremity, Left Quality: Reports: Ache Severity: Moderate Improves with: Reports: None Worsens with: Reports: Other (? time) Context: Reports: Other (small hand wound incurred while trimming nails.) Associated Symptoms: Reports: No Other Symptoms. Denies: Fever/Chills Treatments PROGRAM SUPPORT SPECIALIST: Reports: Other Medication(s) (Rx for Keflex) - Related Data Allergies Allergy/AdvReac Type Severity Reaction Status Date / Time No Known Allergies Allergy Verified 12/30/16 03:34 Home Meds: Home Meds Fenofibrate Nanocrystallized [Fenofibrate] 1 tab PO DAILY 12/28/16 [History] Furosemide [Lasix] 1 tab PO DAILY 12/28/16 [History] Levothyroxine [Synthroid] 1 tab PO DAILY 12/28/16 [History] Metaxalone 1 tab PO TID PRN 12/28/16 [History] Mirtazapine [Remeron] 15 mg PO BEDTIME 12/28/16 [History] Rosuvastatin [Crestor] 1 tab PO DAILY 12/28/16 [History] Triamcinolone Acetonide [Triamcinolone Acetonide 0.1% Crm] 1 dose TOP TID [History] Venlafaxine HCl [Venlafaxine ER] 1 cap PO DAILY 12/28/16 [History] rOPINIRole [Requip] 1 tab PO BID 12/28/16 [History] Sulfamethoxazole/Trimethoprim [Bactrim Ds Tablet] 1 each PO Q12H #19 tablet [Rx] Past Medical History Other Cardiovascular History: high triglycerides Musculoskeletal History: Reports: Back Pain, Chronic Other Musculoskeletal History: ulcers to bilat feet. R & L gt toes, 3rd toe R foot, 3& 5th toes L foot. Numerous broken bones Endocrine/Metabolic History: Reports: Diabetes, Type II Other Endocrine/Metabolic History: diagnosed about 1 year ago Other Dermatologic History: ulcers to bilat feet. R & L gt toes, 3rd toe R foot , 3& 5th toes L foot. Open wound on toe 'months.' - Past Surgical History Other Musculoskeletal Surgeries/Procedures:: R shoulder rotator cuff surg, carpal tunnel Social & Family History - Family History Family Medical History: Noncontributory - Tobacco Use Smoking Status *Q: Current Every Day Smoker Years of Tobacco use: 31 Packs/Tins Daily: 1 Used Tobacco, but Quit: No Second Hand Smoke Exposure: Yes - Caffeine Use Caffeine Use: Reports: Coffee - Alcohol Use Days Per Week of Alcohol Use: 0 - Recreational Drug Use Recreational Drug Use: No Drug Use in Last 12 Months: Yes Recreational Drug Type: Reports: Marijuana/Hashish Review of Systems - Review of Systems Review Of Systems: See Below Constitutional: Reports: No Symptoms Respiratory: Reports: No Symptoms Cardiovascular: Reports: No Symptoms Musculoskeletal: Reports: Hand Pain (Left) Skin: Reports: Erythema (minimal) Neurological: Reports: No Symptoms Psychiatric: Reports: No Symptoms ED EXAM, GENERAL - Physical Exam Exam: See Below Exam Limited By: No Limitations General Appearance: Alert, WD/WN, No Apparent Distress Eye Exam: Bilateral Eye: Normal Inspection Respiratory/Chest: Lungs Clear, Normal Breath Sounds, No Accessory Muscle Use Cardiovascular: Regular Rate, Rhythm Extremities: Pedal Edema (L hand puffy and warmer than the right hand. ) Neurological: Alert, Oriented, CN II-XII Intact, Normal Cognition, No Motor/ Sensory Deficits Psychiatric: Normal Affect, Normal Mood Skin Exam: Warm, Dry, Intact, No Rash, Erythema (to the radial side of the L hand.), Increased Warmth Lymphatic: No Adenopathy Course - Vital Signs Text/Narrative:: Accu Check 111 Last Recorded V/S: Last Vital Signs Temp 36.9 C 12/30/16 03:30 Pulse 90 12/30/16 03:30 Resp 18 12/30/16 03:30 BP 119/95 H 12/30/16 03:30 Pulse Ox 97 12/30/16 03:30 - Orders/Labs/Meds Orders: Active Orders 24 hr Category Date Time Status Accu Check [Blood Glucose Check, Bedside] [RC] ONETIME Care 12/30/16 03:57 Active Meds: Medications Discontinued Medications Generic Name Dose Route Start Last Admin Trade Name Cheng PRN Reason Stop Dose Admin Acetaminophen 1,000 mg 12/30/16 04:18 12/30/16 04:26 Tylenol Extra Strength PO 12/30/16 04:19 1,000 mg ONETIME ONE Administration Ceftriaxone Sodium 1,000 mg 12/30/16 03:47 12/30/16 04:05 Rocephin IM 12/30/16 03:48 1,000 mg ONETIME ONE Administration Ketorolac Tromethamine 60 mg 12/30/16 03:47 12/30/16 04:06 Toradol IM 12/30/16 03:48 60 mg ONETIME ONE Administration Trimethoprim/Sulfamethoxazole 1 tab 12/30/16 03:48 12/30/16 04:05 Septra Ds PO 12/30/16 03:49 1 tab ONETIME ONE Administration Departure - Departure Time of Disposition: 03:30 Disposition: DC/Tfer to Acute Hospital 02 Condition: Fair Clinical Impression: Infected hand - Discharge Information Prescriptions: Sulfamethoxazole/Trimethoprim [Bactrim Ds Tablet] 1 each PO Q12H #19 tablet Referrals: Bambi Esquivel NP [Primary Care Provider] - Forms: ED Department Discharge Additional Instructions: Keep hand elevated above your heart at all times. Go to [facility] to be a direct admission. Dr. Mckeon will be taking care of you. - My Orders Last 24 Hours: My Active Orders 12/30/16 03:57 Accu Check [Blood Glucose Check, Bedside] [RC] ONETIME - Assessment/Plan Last 24 Hours: My Active Orders 12/30/16 03:57 Accu Check [Blood Glucose Check, Bedside] [RC] ONETIME
[2016-12-30] MEDS ORDERED: Acetaminophen 500 MG Tab PO ONE (04:18)
== END 2016-12-30 04:45 ==
LOC: FB.ED 03:24
DX: L08.89 Other specified local infections of the skin and subcutaneous tissue (principal); E11.9 Type 2 diabetes mellitus without complications; F17.210 Nicotine dependence, cigarettes, uncomplicated; Z79.899 Other long term (current) drug therapy
CPT/HCPCS: 82962; 96372; 99283; A9270; J0696; J1885

== ENCOUNTER 2017-01-08 06:56 | Emergency (ER) | payer MEDICAID ==
[2017-01-08 07:26] VITALS: BP 126/97
--- NOTE | 2017-01-08 09:03 | EDM.PDOC ---
ED HPI GENERAL MEDICAL PROBLEM - General Chief Complaint: Syncope Stated Complaint: PASSED OUT Time Seen by Provider: 01/08/17 07:00 Source of Information: Reports: Patient - History of Present Illness INITIAL COMMENTS - FREE TEXT/NARRATIVE: 51 years old w m came to the ed because he "may have passed out last night" No N /V/D. Pt take various kind of meds, including ABx. Pt is well know in this ed due to frequent visits. No C/P. BP 126/97 pulse 93 Pt was ambulating well on arrival. Orthostatics were neg. No other acute medical issues at this time. Onset: Today Onset Date: 01/07/17 Onset Time: 21:00 Location: Reports: Generalized Quality: Reports: Other (no pain, not dizzy) Context: Reports: Other (?) Associated Symptoms: Reports: Weakness - Related Data Allergies Allergy/AdvReac Type Severity Reaction Status Date / Time No Known Allergies Allergy Verified 01/08/17 07:36 Home Meds: Home Meds Fenofibrate Nanocrystallized [Fenofibrate] 1 tab PO DAILY 12/28/16 [History] Furosemide [Lasix] 1 tab PO DAILY 12/28/16 [History] Levothyroxine [Synthroid] 1 tab PO DAILY 12/28/16 [History] Metaxalone 1 tab PO TID PRN 12/28/16 [History] Mirtazapine [Remeron] 15 mg PO BEDTIME 12/28/16 [History] Rosuvastatin [Crestor] 1 tab PO DAILY 12/28/16 [History] Triamcinolone Acetonide [Triamcinolone Acetonide 0.1% Crm] 1 dose TOP TID [History] Venlafaxine HCl [Venlafaxine ER] 1 cap PO DAILY 12/28/16 [History] rOPINIRole [Requip] 1 tab PO BID 12/28/16 [History] Sulfamethoxazole/Trimethoprim [Bactrim Ds Tablet] 1 each PO Q12H #19 tablet [Rx] Past Medical History Other Cardiovascular History: high triglycerides Musculoskeletal History: Reports: Back Pain, Chronic Other Musculoskeletal History: ulcers to bilat feet. R & L gt toes, 3rd toe R foot, 3& 5th toes L foot. Numerous broken bones Endocrine/Metabolic History: Reports: Diabetes, Type II Other Endocrine/Metabolic History: diagnosed about 1 year ago Other Dermatologic History: ulcers to bilat feet. R & L gt toes, 3rd toe R foot , 3& 5th toes L foot. Open wound on toe 'months.' - Past Surgical History Other Musculoskeletal Surgeries/Procedures:: R shoulder rotator cuff surg, carpal tunnel Social & Family History - Family History Family Medical History: Noncontributory - Tobacco Use Smoking Status *Q: Former Smoker Years of Tobacco use: 31 Packs/Tins Daily: 1 Used Tobacco, but Quit: Yes Month Tobacco Last Used: apr Second Hand Smoke Exposure: Yes - Caffeine Use Caffeine Use: Reports: Coffee - Alcohol Use Days Per Week of Alcohol Use: 0 - Recreational Drug Use Recreational Drug Use: No Drug Use in Last 12 Months: Yes Recreational Drug Type: Reports: Marijuana/Hashish ED ROS GENERAL - Review of Systems Review Of Systems: See Below Constitutional: Reports: No Symptoms HEENT: Reports: No Symptoms Respiratory: Reports: No Symptoms Cardiovascular: Reports: No Symptoms Endocrine: Reports: No Symptoms GI/Abdominal: Reports: No Symptoms : Reports: No Symptoms Musculoskeletal: Reports: No Symptoms Skin: Reports: No Symptoms Neurological: Reports: No Symptoms Psychiatric: Reports: No Symptoms Hematologic/Lymphatic: Reports: No Symptoms Immunologic: Reports: No Symptoms - Physical Exam Exam: See Below Exam Limited By: No Limitations General Appearance: Alert, WD/WN, No Apparent Distress Eye Exam: Bilateral Eye: Normal Inspection Ears: Normal External Exam, Normal Canal Nose: Normal Inspection, Normal Mucosa Throat/Mouth: Normal Inspection, Other (dry mucosal membrane) Head Exam: Atraumatic, Normocephalic Neck: Normal Inspection, Supple, Non-Tender, Full Range of Motion Respiratory/Chest: No Respiratory Distress, Lungs Clear, Normal Breath Sounds, No Accessory Muscle Use, Chest Non-Tender Cardiovascular: Normal Peripheral Pulses, Regular Rate, Rhythm, No Edema GI/Abdominal: Normal Bowel Sounds, Soft, Non-Tender, No Organomegaly (Male) Exam: Deferred Rectal (Males) Exam: Deferred Neuro Exam (Abbreviated): Alert, Oriented, CN II-XII Intact, Normal Cognition Back Exam: Normal Inspection Extremities: Normal Inspection, Normal Range of Motion, Non-Tender, No Pedal Edema Psychiatric: Normal Affect, Depressed Mood Skin Exam: Warm, Dry, Intact, Normal Color Course - Vital Signs Text/Narrative:: 51 years old w m came to the ed because he "may have passed out last night" No N /V/D. Pt take various kind of meds, including ABx. Pt is well know in this ed due to frequent visits. No C/P. BP 126/97 pulse 93 Pt was ambulating well on arrival. Orthostatics were neg. No other acute medical issues at this time. PE: WNWD w m, NAD, obese, appears tired Labs: CBC, BMP and UDS were neg Glc was 230 Impression: Vasovagal syncopy Tx: Pt was able to drink water Reexam: Improved, pt was in his usual state of health Last Recorded V/S: Last Vital Signs Temp 35.8 C 01/08/17 07:00 Pulse 98 01/08/17 07:00 Resp 18 01/08/17 07:00 BP 126/97 H 01/08/17 07:00 Pulse Ox 98 01/08/17 07:00 Orthostatic Blood Pressure [ 134/85 Standing] Orthostatic Blood Pressure [ 131/82 Sitting] Orthostatic Blood Pressure [ 129/87 Supine] - Orders/Labs/Meds Orders: Active Orders 24 hr Category Date Time Status Orthostatic Vital Signs [RC] ASDIRECTED Care 01/08/17 07:33 Active Labs: Laboratory Tests 01/08/17 01/08/17 01/08/17 Range/Units 07:50 07:50 07:55 WBC 7.2 (4.5-12.0) X10-3/uL RBC 4.31 (4.30-5.75) x10(6)uL Hgb 12.9 (11.5-15.5) g/dL Hct 37.7 (30.0-51.3) % MCV 87.3 (80-96) fL MCH 29.8 (27.7-33.6) pg MCHC 34.2 (32.2-35.4) g/dL RDW 13.8 (11.5-15.5) % Plt Count 334 (125-369) X10(3)uL MPV 8.3 (7.4-10.4) fL Neut % (Auto) 62.8 (46-82) % Lymph % (Auto) 24.5 (13-37) % Woodward % (Auto) 9.5 (4-12) % Eos % (Auto) 3 (1.0-5.0) % Baso % (Auto) 1 (0-2) % Neut # (Auto) 4.5 (1.6-8.3) # Lymph # (Auto) 1.8 (0.6-5.0) # Woodward # (Auto) 0.7 (0.0-1.3) # Eos # (Auto) 0.2 (0.0-0.8) # Baso # (Auto) 0.0 (0.0-0.2) # Sodium (135-145) mmol/L Potassium (3.5-5.3) mmol/L Chloride (100-110) mmol/L Carbon Dioxide (23-29) mmol/L BUN (5-20) mg/dL Creatinine (0.6-1.3) mg/dL Est Cr Clr Drug Dosing Estimated GFR (MDRD) (>60) BUN/Creatinine Ratio (9-20) Glucose (80-116) mg/dL Calcium (8.6-10.2) mg/dL Urine Color Yellow (YELLOW) Urine Appearance Clear (CLEAR) Urine pH 5.0 (5.0-6.5) Ur Specific Saxon 1.020 (1.010-1.025) Urine Protein Negative (NEGATIVE) mg/dL Urine Glucose (UA) 250 H (NEGATIVE) mg/dL Urine Ketones Negative (NEGATIVE) mg/dL Urine Occult Blood Negative (NEGATIVE) Urine Nitrite Negative (NEGATIVE) Urine Bilirubin Negative (NEGATIVE) Urine Urobilinogen Normal (NEGATIVE) mg/dL Ur Leukocyte Esterase Negative (NEGATIVE) Urine WBC 0-5 (0) Ur Squamous Epith Cells Occasional (NS,R,O) Urine Bacteria Few H (NS) Urine Opiates Screen Negative (NEGATIVE) Ur Oxycodone Screen Negative (NEGATIVE) Ur Propoxyphene Screen Negative (NEGATIVE) Ur Barbituates Screen Negative (NEGATIVE) Ur Tricyclics Screen Negative (NEGATIVE) Ur Phencyclidine Scrn Negative (NEGATIVE) Ur Amphetamine Screen Negative (NEGATIVE) Urine MDMA Screen Negative (NEGATIVE) U Benzodiazepines Scrn Negative (NEGATIVE) U Cocaine Metab Screen Negative (NEGATIVE) U Marijuana (THC) Screen Negative (NEGATIVE) 01/08/17 Range/Units 07:55 WBC (4.5-12.0) X10-3/uL RBC (4.30-5.75) x10(6)uL Hgb (11.5-15.5) g/dL Hct (30.0-51.3) % MCV (80-96) fL MCH (27.7-33.6) pg MCHC (32.2-35.4) g/dL RDW (11.5-15.5) % Plt Count (125-369) X10(3)uL MPV (7.4-10.4) fL Neut % (Auto) (46-82) % Lymph % (Auto) (13-37) % Woodward % (Auto) (4-12) % Eos % (Auto) (1.0-5.0) % Baso % (Auto) (0-2) % Neut # (Auto) (1.6-8.3) # Lymph # (Auto) (0.6-5.0) # Woodward # (Auto) (0.0-1.3) # Eos # (Auto) (0.0-0.8) # Baso # (Auto) (0.0-0.2) # Sodium 140 (135-145) mmol/L Potassium 4.0 (3.5-5.3) mmol/L Chloride 106 (100-110) mmol/L Carbon Dioxide 24 (23-29) mmol/L BUN 17 (5-20) mg/dL Creatinine 0.8 (0.6-1.3) mg/dL Est Cr Clr Drug Dosing TNP Estimated GFR (MDRD) > 60 (>60) BUN/Creatinine Ratio 21.3 H (9-20) Glucose 224 H D (80-116) mg/dL Calcium 9.1 (8.6-10.2) mg/dL Urine Color (YELLOW) Urine Appearance (CLEAR) Urine pH (5.0-6.5) Ur Specific Saxon (1.010-1.025) Urine Protein (NEGATIVE) mg/dL Urine Glucose (UA) (NEGATIVE) mg/dL Urine Ketones (NEGATIVE) mg/dL Urine Occult Blood (NEGATIVE) Urine Nitrite (NEGATIVE) Urine Bilirubin (NEGATIVE) Urine Urobilinogen (NEGATIVE) mg/dL Ur Leukocyte Esterase (NEGATIVE) Urine WBC (0) Ur Squamous Epith Cells (NS,R,O) Urine Bacteria (NS) Urine Opiates Screen (NEGATIVE) Ur Oxycodone Screen (NEGATIVE) Ur Propoxyphene Screen (NEGATIVE) Ur Barbituates Screen (NEGATIVE) Ur Tricyclics Screen (NEGATIVE) Ur Phencyclidine Scrn (NEGATIVE) Ur Amphetamine Screen (NEGATIVE) Urine MDMA Screen (NEGATIVE) U Benzodiazepines Scrn (NEGATIVE) U Cocaine Metab Screen (NEGATIVE) U Marijuana (THC) Screen (NEGATIVE) Departure - Departure Time of Disposition: 09:01 Disposition: Home, Self-Care 01 Condition: Good Clinical Impression: Vasovagal syncope - Discharge Information Referrals: Bambi Esquivel NP [Primary Care Provider] - Forms: ED Department Discharge Additional Instructions: Simón increase water intake, please f/u, please come back if your symptoms get worse acutely - My Orders Last 24 Hours: My Active Orders 01/08/17 07:33 Orthostatic Vital Signs [RC] ASDIRECTED - Assessment/Plan Last 24 Hours: My Active Orders 01/08/17 07:33 Orthostatic Vital Signs [RC] ASDIRECTED
== END 2017-01-08 09:05 | disposition home or self-care (01) ==
LOC: FB.ED 06:56
DX: R55 Syncope and collapse (principal); E11.9 Type 2 diabetes mellitus without complications; Z79.899 Other long term (current) drug therapy; Z87.891 Personal history of nicotine dependence
CPT/HCPCS: 36415; 80048; 80305; 81001; 85025; 99284

== ENCOUNTER 2017-04-25 09:42 | Observation (INO) | payer MEDICAID ==
[2017-04-25] MEDS ORDERED: Naloxone 0.4 MG/ML SDV IOSS ONE (09:51)
--- NOTE | 2017-04-25 10:20 | EDM.PDOC ---
ED HPI GENERAL MEDICAL PROBLEM - General Stated Complaint: UNRESPONSIVE Time Seen by Provider: 04/25/17 09:42 Source of Information: Reports: Patient History Limitations: Reports: No Limitations - History of Present Illness INITIAL COMMENTS - FREE TEXT/NARRATIVE: c/o collapse a passerby observed pt to be walking down street and to fall into a snowbank, EMS called and pt with BS 41, glucagon given with subsequent BS 123 and then 155 pt with limited responsiveness on arrival at ED, there was a question of lack of pulse, CPR done briefly for 30 seconds, pt with strong carotid pulse and inc' d BP as I walked into exam room oral airway placed and Ambu bag ventilations done for 10 minutes, initially did not respond to airway altho contracted ext x 4 with IO placed in R pretib, pt subsequently gagged on airway and spit it out pt did not speak to EMS or to ED staff, he did shake his head "no" in response to several questions, he subsequently would flex all ext and thrash around which appeared voluntary, no true posturing pupils 4/4 mm on arrival, conjugate, reactive to direct and indirect light pt last here 3m ago with a report of a syncopal episode, labs were neg then, prior UDS was neg PMH: borderline DM, PVD with toe amputation, vasovagal syncope, peripheral neuropathy recent meds: diclofenac, furosemide, levothyroxine, omeprazole, ropinirole, venlafaxine, mirtazapine, fenofibrate, fenofibrate - Related Data Allergies Allergy/AdvReac Type Severity Reaction Status Date / Time No Known Allergies Allergy Verified 01/08/17 07:36 Home Meds: Home Meds Fenofibrate Nanocrystallized [Fenofibrate] 1 tab PO DAILY 12/28/16 [History] Furosemide [Lasix] 1 tab PO DAILY 12/28/16 [History] Levothyroxine [Synthroid] 1 tab PO DAILY 12/28/16 [History] Metaxalone 1 tab PO TID PRN 12/28/16 [History] Mirtazapine [Remeron] 15 mg PO BEDTIME 12/28/16 [History] Rosuvastatin [Crestor] 1 tab PO DAILY 12/28/16 [History] Triamcinolone Acetonide [Triamcinolone Acetonide 0.1% Crm] 1 dose TOP TID [History] Venlafaxine HCl [Venlafaxine ER] 1 cap PO DAILY 12/28/16 [History] rOPINIRole [Requip] 1 tab PO BID 12/28/16 [History] Sulfamethoxazole/Trimethoprim [Bactrim Ds Tablet] 1 each PO Q12H #19 tablet [Rx] Past Medical History Other Cardiovascular History: high triglycerides Musculoskeletal History: Reports: Back Pain, Chronic Other Musculoskeletal History: ulcers to bilat feet. R & L gt toes, 3rd toe R foot, 3& 5th toes L foot. Numerous broken bones Endocrine/Metabolic History: Reports: Diabetes, Type II Other Endocrine/Metabolic History: diagnosed about 1 year ago Other Dermatologic History: ulcers to bilat feet. R & L gt toes, 3rd toe R foot , 3& 5th toes L foot. Open wound on toe 'months.' - Past Surgical History Other Musculoskeletal Surgeries/Procedures:: R shoulder rotator cuff surg, carpal tunnel Social & Family History - Family History Family Medical History: Noncontributory - Tobacco Use Smoking Status *Q: Former Smoker Years of Tobacco use: 31 Packs/Tins Daily: 1 Used Tobacco, but Quit: Yes Month Tobacco Last Used: apr Second Hand Smoke Exposure: Yes - Caffeine Use Caffeine Use: Reports: Coffee - Alcohol Use Days Per Week of Alcohol Use: 0 - Recreational Drug Use Recreational Drug Use: No Drug Use in Last 12 Months: Yes Recreational Drug Type: Reports: Marijuana/Hashish ED ROS GENERAL - Review of Systems Review Of Systems: Unable To Obtain ED EXAM, GENERAL - Physical Exam Exam: See Below Exam Limited By: Altered Mental Status General Appearance: WD/WN, Obtunded Eye Exam: Bilateral Eye: Normal Inspection Ears: Normal External Exam Nose: Normal Inspection, Normal Mucosa, No Blood Throat/Mouth: Normal Inspection, Normal Lips, Normal Teeth Head: Atraumatic, Normocephalic Neck: Normal Inspection, Supple, Non-Tender, Full Range of Motion Respiratory/Chest: No Respiratory Distress, Lungs Clear, Normal Breath Sounds, No Accessory Muscle Use Cardiovascular: Regular Rate, Rhythm, No Edema, No Gallop, No JVD, No Murmur, No Rub GI/Abdominal: Soft, Non-Tender, No Distention, No Mass Back Exam: Normal Inspection Extremities: Normal Inspection, Non-Tender, No Pedal Edema, Other (R great toe surgically absent, open wound on pad of R 2nd toe and base of L great toe) Neurological: Other (MUNIZ, no lateralization) Skin Exam: Dry, Normal Color, No Rash, Other (hands and feet slightly cool, not cold, pink, open wounds on pads of toes on both feet) Lymphatic: No Adenopathy Course - Vital Signs Last Recorded V/S: Last Vital Signs Temp 35.0 C L 04/25/17 09:45 Pulse 90 04/25/17 09:45 Resp 13 04/25/17 09:45 BP 155/23 H 04/25/17 09:45 Pulse Ox 94 L 04/25/17 09:50 - Orders/Labs/Meds Orders: Active Orders 24 hr Category Date Time Status Oxygen Therapy Adult [Oxygen Therapy, ED] [RC] Care 04/25/17 11:00 Active ASDIRECTED Chest 1V Frontal [CR] Stat Exams 04/25/17 10:09 Ordered Head wo Cont [CT] Stat Exams 04/25/17 10:09 Ordered EKG 12 Lead [EK] Routine Ther 04/25/17 10:27 Ordered Labs: Laboratory Tests 04/25/17 04/25/17 04/25/17 Range/Units 09:50 09:50 09:50 WBC 5.4 (4.5-12.0) X10-3/uL RBC 4.44 (4.30-5.75) x10(6)uL Hgb 14.0 (11.5-15.5) g/dL Hct 40.0 (30.0-51.3) % MCV 90.0 (80-96) fL MCH 31.6 (27.7-33.6) pg MCHC 35.1 (32.2-35.4) g/dL RDW 12.6 (11.5-15.5) % Plt Count 291 (125-369) X10(3)uL MPV 7.8 (7.4-10.4) fL Neut % (Auto) 53.5 (46-82) % Lymph % (Auto) 34.5 (13-37) % [place] % (Auto) 9.9 (4-12) % Eos % (Auto) 2 (1.0-5.0) % Baso % (Auto) 0 (0-2) % Neut # (Auto) 2.9 (1.6-8.3) # Lymph # (Auto) 1.9 (0.6-5.0) # [place] # (Auto) 0.5 (0.0-1.3) # Eos # (Auto) 0.1 (0.0-0.8) # Baso # (Auto) 0.0 (0.0-0.2) # PT (8.7-11.1) INR (0.89-1.13) ABG pH (7.35-7.45) ABG pCO2 (35-45) mmHg ABG pO2 (83-108) mmHg ABG HCO3 (22-26) mmol/L ABG O2 Saturation (96-97) % ABG Base Excess (-2-2) Geronimo Test O2 Delivery Device Sodium 142 (135-145) mmol/L Potassium 3.9 (3.5-5.3) mmol/L Chloride 105 (100-110) mmol/L Carbon Dioxide 29 (21-32) mmol/L BUN 17 (7-18) mg/dL Creatinine 0.9 (0.70-1.30) mg/dL Est Cr Clr Drug Dosing TNP Estimated GFR (MDRD) > 60 (>60) BUN/Creatinine Ratio 18.9 (9-20) Glucose 169 H (80-116) mg/dL POC Glucose (80-116) mg/dL Calcium 8.6 (8.6-10.2) mg/dL Total Bilirubin 0.4 (0.1-1.3) mg/dL AST 28 H (5-25) IU/L ALT 47 H (12-36) U/L Alkaline Phosphatase 73 (56-112) IU/L Troponin I < 0.017 L (<0.017-0.056) ng/mL C-Reactive Protein < 0.2 L (0.5-0.9) mg/dL Total Protein 7.1 (6.0-8.0) g/dL Albumin 3.7 (3.5-5.2) g/dL Globulin 3.4 g/dL Albumin/Globulin Ratio 1.1 TSH, Ultra Sensitive (0.36-3.74) IU/mL Urine Color (YELLOW) Urine Appearance (CLEAR) Urine pH (5.0-6.5) Ur Specific Evans (1.010-1.025) Urine Protein (NEGATIVE) mg/dL Urine Glucose (UA) (NEGATIVE) mg/dL Urine Ketones (NEGATIVE) mg/dL Urine Occult Blood (NEGATIVE) Urine Nitrite (NEGATIVE) Urine Bilirubin (NEGATIVE) Urine Urobilinogen (NEGATIVE) mg/dL Ur Leukocyte Esterase (NEGATIVE) Urine WBC (0) Ur Squamous Epith Cells (NS,R,O) Urine Bacteria (NS) Urine Opiates Screen (NEGATIVE) Ur Oxycodone Screen (NEGATIVE) Ur Propoxyphene Screen (NEGATIVE) Ur Barbituates Screen (NEGATIVE) Ur Tricyclics Screen (NEGATIVE) Ur Phencyclidine Scrn (NEGATIVE) Ur Amphetamine Screen (NEGATIVE) Urine MDMA Screen (NEGATIVE) U Benzodiazepines Scrn (NEGATIVE) U Cocaine Metab Screen (NEGATIVE) U Marijuana (THC) Screen (NEGATIVE) Ethyl Alcohol (<0.03) % 04/25/17 04/25/17 04/25/17 Range/Units 09:50 09:50 09:50 WBC (4.5-12.0) X10-3/uL RBC (4.30-5.75) x10(6)uL Hgb (11.5-15.5) g/dL Hct (30.0-51.3) % MCV (80-96) fL MCH (27.7-33.6) pg MCHC (32.2-35.4) g/dL RDW (11.5-15.5) % Plt Count (125-369) X10(3)uL MPV (7.4-10.4) fL Neut % (Auto) (46-82) % Lymph % (Auto) (13-37) % [place] % (Auto) (4-12) % Eos % (Auto) (1.0-5.0) % Baso % (Auto) (0-2) % Neut # (Auto) (1.6-8.3) # Lymph # (Auto) (0.6-5.0) # [place] # (Auto) (0.0-1.3) # Eos # (Auto) (0.0-0.8) # Baso # (Auto) (0.0-0.2) # PT 11.0 (8.7-11.1) INR 1.09 (0.89-1.13) ABG pH (7.35-7.45) ABG pCO2 (35-45) mmHg ABG pO2 (83-108) mmHg ABG HCO3 (22-26) mmol/L ABG O2 Saturation (96-97) % ABG Base Excess (-2-2) [place]imo Test O2 Delivery Device Sodium (135-145) mmol/L Potassium (3.5-5.3) mmol/L Chloride (100-110) mmol/L Carbon Dioxide (21-32) mmol/L BUN (7-18) mg/dL Creatinine (0.70-1.30) mg/dL Est Cr Clr Drug Dosing Estimated GFR (MDRD) (>60) BUN/Creatinine Ratio (9-20) Glucose (80-116) mg/dL POC Glucose (80-116) mg/dL Calcium (8.6-10.2) mg/dL Total Bilirubin (0.1-1.3) mg/dL AST (5-25) IU/L ALT (12-36) U/L Alkaline Phosphatase (56-112) IU/L Troponin I (<0.017-0.056) ng/mL C-Reactive Protein (0.5-0.9) mg/dL Total Protein (6.0-8.0) g/dL Albumin (3.5-5.2) g/dL Globulin g/dL Albumin/Globulin Ratio TSH, Ultra Sensitive 4.07 H (0.36-3.74) IU/mL Urine Color (YELLOW) Urine Appearance (CLEAR) Urine pH (5.0-6.5) Ur Specific Evans (1.010-1.025) Urine Protein (NEGATIVE) mg/dL Urine Glucose (UA) (NEGATIVE) mg/dL Urine Ketones (NEGATIVE) mg/dL Urine Occult Blood (NEGATIVE) Urine Nitrite (NEGATIVE) Urine Bilirubin (NEGATIVE) Urine Urobilinogen (NEGATIVE) mg/dL Ur Leukocyte Esterase (NEGATIVE) Urine WBC (0) Ur Squamous Epith Cells (NS,R,O) Urine Bacteria (NS) Urine Opiates Screen (NEGATIVE) Ur Oxycodone Screen (NEGATIVE) Ur Propoxyphene Screen (NEGATIVE) Ur Barbituates Screen (NEGATIVE) Ur Tricyclics Screen (NEGATIVE) Ur Phencyclidine Scrn (NEGATIVE) Ur Amphetamine Screen (NEGATIVE) Urine MDMA Screen (NEGATIVE) U Benzodiazepines Scrn (NEGATIVE) U Cocaine Metab Screen (NEGATIVE) U Marijuana (THC) Screen (NEGATIVE) Ethyl Alcohol < 0.03 (<0.03) % 04/25/17 04/25/17 04/25/17 Range/Units 09:53 10:10 10:20 WBC (4.5-12.0) X10-3/uL RBC (4.30-5.75) x10(6)uL Hgb (11.5-15.5) g/dL Hct (30.0-51.3) % MCV (80-96) fL MCH (27.7-33.6) pg MCHC (32.2-35.4) g/dL RDW (11.5-15.5) % Plt Count (125-369) X10(3)uL MPV (7.4-10.4) fL Neut % (Auto) (46-82) % Lymph % (Auto) (13-37) % [place] % (Auto) (4-12) % Eos % (Auto) (1.0-5.0) % Baso % (Auto) (0-2) % Neut # (Auto) (1.6-8.3) # Lymph # (Auto) (0.6-5.0) # [place] # (Auto) (0.0-1.3) # Eos # (Auto) (0.0-0.8) # Baso # (Auto) (0.0-0.2) # PT (8.7-11.1) INR (0.89-1.13) ABG pH 7.35 (7.35-7.45) ABG pCO2 43 (35-45) mmHg ABG pO2 190 H (83-108) mmHg ABG HCO3 23 (22-26) mmol/L ABG O2 Saturation 100 H (96-97) % ABG Base Excess -1.9 (-2-2) [place]imo Test passed O2 Delivery Device Non rebr mask Sodium (135-145) mmol/L Potassium (3.5-5.3) mmol/L Chloride (100-110) mmol/L Carbon Dioxide (21-32) mmol/L BUN (7-18) mg/dL Creatinine (0.70-1.30) mg/dL Est Cr Clr Drug Dosing Estimated GFR (MDRD) (>60) BUN/Creatinine Ratio (9-20) Glucose (80-116) mg/dL POC Glucose 158 H (80-116) mg/dL Calcium (8.6-10.2) mg/dL Total Bilirubin (0.1-1.3) mg/dL AST (5-25) IU/L ALT (12-36) U/L Alkaline Phosphatase (56-112) IU/L Troponin I (<0.017-0.056) ng/mL C-Reactive Protein (0.5-0.9) mg/dL Total Protein (6.0-8.0) g/dL Albumin (3.5-5.2) g/dL Globulin g/dL Albumin/Globulin Ratio TSH, Ultra Sensitive (0.36-3.74) IU/mL Urine Color Yellow (YELLOW) Urine Appearance Clear (CLEAR) Urine pH 5.0 (5.0-6.5) Ur Specific Evans 1.020 (1.010-1.025) Urine Protein Negative (NEGATIVE) mg/dL Urine Glucose (UA) Normal (NEGATIVE) mg/dL Urine Ketones Negative (NEGATIVE) mg/dL Urine Occult Blood Negative (NEGATIVE) Urine Nitrite Negative (NEGATIVE) Urine Bilirubin Negative (NEGATIVE) Urine Urobilinogen Normal (NEGATIVE) mg/dL Ur Leukocyte Esterase Negative (NEGATIVE) Urine WBC 0-5 (0) Ur Squamous Epith Cells Occasional (NS,R,O) Urine Bacteria Few H (NS) Urine Opiates Screen (NEGATIVE) Ur Oxycodone Screen (NEGATIVE) Ur Propoxyphene Screen (NEGATIVE) Ur Barbituates Screen (NEGATIVE) Ur Tricyclics Screen (NEGATIVE) Ur Phencyclidine Scrn (NEGATIVE) Ur Amphetamine Screen (NEGATIVE) Urine MDMA Screen (NEGATIVE) U Benzodiazepines Scrn (NEGATIVE) U Cocaine Metab Screen (NEGATIVE) U Marijuana (THC) Screen (NEGATIVE) Ethyl Alcohol (<0.03) % 04/25/17 Range/Units 10:20 WBC (4.5-12.0) X10-3/uL RBC (4.30-5.75) x10(6)uL Hgb (11.5-15.5) g/dL Hct (30.0-51.3) % MCV (80-96) fL MCH (27.7-33.6) pg MCHC (32.2-35.4) g/dL RDW (11.5-15.5) % Plt Count (125-369) X10(3)uL MPV (7.4-10.4) fL Neut % (Auto) (46-82) % Lymph % (Auto) (13-37) % [place] % (Auto) (4-12) % Eos % (Auto) (1.0-5.0) % Baso % (Auto) (0-2) % Neut # (Auto) (1.6-8.3) # Lymph # (Auto) (0.6-5.0) # [place] # (Auto) (0.0-1.3) # Eos # (Auto) (0.0-0.8) # Baso # (Auto) (0.0-0.2) # PT (8.7-11.1) INR (0.89-1.13) ABG pH (7.35-7.45) ABG pCO2 (35-45) mmHg ABG pO2 (83-108) mmHg ABG HCO3 (22-26) mmol/L ABG O2 Saturation (96-97) % ABG Base Excess (-2-2) [place] Test O2 Delivery Device Sodium (135-145) mmol/L Potassium (3.5-5.3) mmol/L Chloride (100-110) mmol/L Carbon Dioxide (21-32) mmol/L BUN (7-18) mg/dL Creatinine (0.70-1.30) mg/dL Est Cr Clr Drug Dosing Estimated GFR (MDRD) (>60) BUN/Creatinine Ratio (9-20) Glucose (80-116) mg/dL POC Glucose (80-116) mg/dL Calcium (8.6-10.2) mg/dL Total Bilirubin (0.1-1.3) mg/dL AST (5-25) IU/L ALT (12-36) U/L Alkaline Phosphatase (56-112) IU/L Troponin I (<0.017-0.056) ng/mL C-Reactive Protein (0.5-0.9) mg/dL Total Protein (6.0-8.0) g/dL Albumin (3.5-5.2) g/dL Globulin g/dL Albumin/Globulin Ratio TSH, Ultra Sensitive (0.36-3.74) IU/mL Urine Color (YELLOW) Urine Appearance (CLEAR) Urine pH (5.0-6.5) Ur Specific Evans (1.010-1.025) Urine Protein (NEGATIVE) mg/dL Urine Glucose (UA) (NEGATIVE) mg/dL Urine Ketones (NEGATIVE) mg/dL Urine Occult Blood (NEGATIVE) Urine Nitrite (NEGATIVE) Urine Bilirubin (NEGATIVE) Urine Urobilinogen (NEGATIVE) mg/dL Ur Leukocyte Esterase (NEGATIVE) Urine WBC (0) Ur Squamous Epith Cells (NS,R,O) Urine Bacteria (NS) Urine Opiates Screen Negative (NEGATIVE) Ur Oxycodone Screen Negative (NEGATIVE) Ur Propoxyphene Screen Negative (NEGATIVE) Ur Barbituates Screen Negative (NEGATIVE) Ur Tricyclics Screen Negative (NEGATIVE) Ur Phencyclidine Scrn Negative (NEGATIVE) Ur Amphetamine Screen Negative (NEGATIVE) Urine MDMA Screen Negative (NEGATIVE) U Benzodiazepines Scrn Negative (NEGATIVE) U Cocaine Metab Screen Negative (NEGATIVE) U Marijuana (THC) Screen Negative (NEGATIVE) Ethyl Alcohol (<0.03) % - Re-Assessments/Exams Free Text/Narrative Re-Assessment/Exam: 04/25/17 11:04 friend came to ED, brought his pill bottles, no DM meds pt now talking, said to his friend "they violated me", answering questions, says he "hurts all over" labs unremarkable, mild inc'd LFTs unchanged EKG by EMS and here are both wnl CxR 1 view neg, head CT without neg for acute or chronic changes as per Dr Clancy 04/25/17 11:21 d/w hospitalist who accepted pt in admission pt reports that he had not eaten bfast, last meal was 1 PM yesterday, had not eaten for 3-4 days prior to that rectal temp 97 Departure - Departure Time of Disposition: 11:22 Disposition: Refer to Observation Clinical Impression: Hypoglycemia, Toe ulcer, Unresponsive episode, Hypothermia, Nutrition deficiency due to insufficient food - Discharge Information Referrals: Bambi Esquivel RN INTERN [Primary Care Provider] - - My Orders Last 24 Hours: My Active Orders 04/25/17 10:09 Chest 1V Frontal [CR] Stat Head wo Cont [CT] Stat 04/25/17 10:27 EKG 12 Lead [EK] Routine 04/25/17 11:00 Oxygen Therapy Adult [Oxygen Therapy, ED] [RC] ASDIRECTED - Assessment/Plan Last 24 Hours: My Active Orders 04/25/17 10:09 Chest 1V Frontal [CR] Stat Head wo Cont [CT] Stat 04/25/17 10:27 EKG 12 Lead [EK] Routine 04/25/17 11:00 Oxygen Therapy Adult [Oxygen Therapy, ED] [RC] ASDIRECTED
[2017-04-25] MEDS ORDERED: Sodium Chloride 0.9% 10 ML Syringe FLUSH PRN (11:18)
[2017-04-25] MEDS ORDERED: Ondansetron 4 MG Tab.DIS PO PRN (11:18)
--- NOTE | 2017-04-25 11:24 | CT ---
INDICATION: Patient unresponsive. CT HEAD WITHOUT CONTRAST: Serial contiguous 2.5 and 5-mm sections were obtained through the brain 04/25/2017, and compared with 01/12/2015, revealing no shift of midline structures or ventricular abnormalities. Vertebral and some internal carotid artery calcifications are suggested, as previously. Total Exam DLP = 2103.83 mGy-cm. Detail is limited in multiple images due to motion of the patient. The examination was repeated due to the patient's motion. No definite abnormal areas of density were identified - no bleeding site or hematoma was seen. Small retention cysts x2 are noted in the right maxillary antrum, one is seen in the left maxillary antrum. Paranasal sinuses were otherwise unremarkable. Mastoid air cells are relatively minimal in number, but are aerated normally. A definite cranial abnormality was not identified. IMPRESSION: 1. No acute intracranial abnormality. 2. Suggestion of cerebrovascular disease with arterial calcifications noted. 3. Minimal findings in paranasal sinuses, as previously. MTDD
--- NOTE | 2017-04-25 11:25 | CR ---
INDICATION: Collapse. CHEST: AP upright view of the chest 04/25/2017 was compared with 01/12/2015 and revealed poor inspiration, emphasizing markings. A definite active infiltrate or effusion was not seen, however. The aorta is somewhat tortuous. The heart is not enlarged. Overlying EKG leads are noted. IMPRESSION: Fairly stable appearance of the chest. No definite acute process. When clinically possible, full inspiration PA and lateral views of the chest may be helpful. Report was called to Dr. Thomas at 1100 hours, 04/25/2017. PURVI
--- NOTE | 2017-04-25 13:36 | PCM.HP ---
H&P History of Present Illness - General Date of Service: 04/25/17 Admit Problem/Dx: Syncope, hypoglycemia and hypothermia and collapse. Source of Information: Patient, EMS, Family, Provider History Limitations: Reports: Other (Patient has history of repetitive brain injury) - History of Present Illness Initial Comments - Free Text/Narative: Patient is a 51-year-old male with a history of chronic postconcussive encephalopathy who also has a history of bipolar and substance abuse. 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 He's been very much enjoying this job, working hard at being involved in trying to "clean up the apartment" and help out the people who live there. He has not been taking time to eat meals, is really unable to cook for himself due to his functional status but hasn't even been taking the time to eat food. He tells me it's because "other people need it more" and he is not going to allow children to go hungry if he can provide them with fluid from his own supply. Although he's been quite hungry, he's also been very busy working so hasn't had much time to think about it. Over the last 3 or 4 days he' s not been sleeping well at night. He's been very preoccupied with was going on in the building where he lives. He's been exhausted and hungry but has felt very energetic. Last night he had 2 episodes where he found himself waking up on the floor after having been up pacing in his apartment. This morning he got up to go down to the police station where he does twice daily breathalyzers as a term of his probation. He did not eat first. He was not dressed for the elements. It was -20 with a windowsill outside and he walked from his apartment to the police station. By the time he got there he was incredibly cold. He said he could barely feel his face or his ears and felt sick because he was so cold. After doing the breathalyzer he laughed and on his way home lost responsiveness and fell into snowbank. This was witnessed by bystanders. EMS was called and on their arrival there was some question of whether or not the patient had a pulse. He was not breathing on his own or at least was somewhat apneic. CPR was initiated and after about 30 seconds it was felt he did have a pulse and rescue breathing was continued but chest compressions were stopped. The patient's initial blood sugar was 41 he was then given glucagon by EMS and on arrival in the emergency department was being bagged but had a strong pulse and a good blood pressure. Blood sugar at that time was in the 140s. He was quite cold with a catheter temperature of 95F. He was rewarmed with a bear hugger and as he was rewarmed became more awake, alert, and responsive. By the time I'm seeing him he is back at his normal baseline state per himself and his friend who is with him. He states he "hurts all over" but has no chest pain, no shortness of breath, no nausea, no vomiting, has not been having any diarrhea or GI symptoms. He's felt very well up until today. His mood has been "very good" and he has felt very energetic. Past medical history: 1. History of substance abuse and mental health. History of both alcohol and narcotic abuse. Currently in on supervised probation but required to go to the police station twice daily for breathalyzer testing. 2. Bipolar disorder with last documented episode in January 2016 severe depression. 3. Diabetes mellitus type 2, currently unmedicated. No record of any other medications but metformin in the past. He tells me when he quit drinking his blood sugars normalized. Hemoglobin A1c today is 6.5%. He often struggles with low blood sugars where he gets shaky since he quit drinking. History of severe peripheral neuropathy and foot and toe ulcers. Right great toe amputation. 4. History of cerebrovascular disease. 5. Obstructive sleep apnea. 6. Hyperlipidemia. 7. Hypothyroidism currently on Synthroid. 8. Chronic postconcussive encephalopathy from frequent fighting and concussions both in childhood and young adulthood. 9. Restless leg syndrome. Medications, allergies as per EMR. 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 He lives alone. His friend Marquis Samson has been "brother, father, best friend" to him for the last couple of years. He smokes whenever he can get cigarettes but that is not often as they're very expensive. Most days he doesn't smoke at all. No alcohol use. No drug use. Family history: Patient has 2 brothers that he is estranged from. He has a number of stepsiblings that he is estranged from. His mother is living but he has no contact with her. His father from cancer unknown type a couple of years ago. - Related Data Allergies/Adverse Reactions: Allergies Allergy/AdvReac Type Severity Reaction Status Date / Time No Known Allergies Allergy Verified 01/08/17 07:36 Home Medications: Home Meds Fenofibrate Nanocrystallized [Fenofibrate] 145 mg PO DAILY 12/28/16 [History] Furosemide [Lasix] 20 mg PO DAILY 12/28/16 [History] Levothyroxine [Synthroid] 50 mcg PO DAILY@0600 12/28/16 [History] Mirtazapine [Remeron] 15 mg PO BEDTIME 12/28/16 [History] Venlafaxine HCl [Venlafaxine ER] 300 cap PO DAILY 12/28/16 [History] rOPINIRole [Requip] 3 mg PO BID 12/28/16 [History] Diclofenac Sodium [Voltaren] 75 mg PO BIDMEALS 04/25/17 [History] Omeprazole 40 mg PO ACBREAKFAST 04/25/17 [History] Pregabalin [Lyrica] 200 mg PO BID 04/25/17 [History] Rosuvastatin [Crestor] 20 mg PO DAILY 04/25/17 [History] Past Medical History HEENT History: Reports: Head Other HEENT History: Pt has slight pimple type bump on the back of his neck and when he became conscious and alert complained of pain. Other Cardiovascular History: high triglycerides Musculoskeletal History: Reports: Back Pain, Chronic Other Musculoskeletal History: ulcers to bilat feet. R & L gt toes, 3rd toe R foot, 3& 5th toes L foot. Numerous broken bones Neurological History: Reports: Concussion, Other (See Below) Other Neuro History: Pt stated he has had many concussions and some brain hemorraging. About 30 years ago. Feels like this may be part of some mental illness. Psychiatric History: Reports: Anxiety, Bipolar, Depression Endocrine/Metabolic History: Reports: Diabetes, Type II Other Endocrine/Metabolic History: diagnosed about 1 year ago Other Dermatologic History: ulcers to bilat feet. R & L gt toes, 3rd toe R foot , 3& 5th toes L foot. Open wound on toe 'months.' - Past Surgical History Other Musculoskeletal Surgeries/Procedures:: R shoulder rotator cuff surg, carpal tunnel Social & Family History - Family History Family Medical History: Noncontributory - Tobacco Use Smoking Status *Q: Former Smoker Years of Tobacco use: 31 Packs/Tins Daily: 1 Used Tobacco, but Quit: Yes Month Tobacco Last Used: apr Second Hand Smoke Exposure: Yes - Caffeine Use Caffeine Use: Reports: Coffee - Alcohol Use Days Per Week of Alcohol Use: 0 - Recreational Drug Use Recreational Drug Use: No Drug Use in Last 12 Months: Yes Recreational Drug Type: Reports: Marijuana/Hashish H&P Review of Systems - Review of Systems: Review Of Systems: ROS reveals no pertinent complaints other than HPI. General: Reports: No Symptoms HEENT: Reports: Other (Has an erythematous small cystic boil on the back of his neck which is tender to touch and he complains of pain from this.) Pulmonary: Reports: No Symptoms Cardiovascular: Reports: Syncope (As per history of present illness) Gastrointestinal: Reports: No Symptoms Genitourinary: Reports: No Symptoms Musculoskeletal: Reports: Other (Complains that his arms and legs ache as does the rest of his body. He just "hurts all over") Skin: Reports: No Symptoms Psychiatric: Reports: Mood Lability (Has been very "up" the last couple of weeks. Per his friend, they haven't noticed a significant bung remover the last couple of years as he's always very high energy. However the patient is open to the idea that he may be hypomanic at this time.) Neurological: Reports: No Symptoms Hematologic/Lymphatic: Reports: No Symptoms Immunologic: Reports: No Symptoms Exam - Exam Exam: See Below - Vital Signs Vital Signs: Last Vital Signs Temp 35.0 C L 04/25/17 09:45 Pulse 90 04/25/17 09:45 Resp 13 04/25/17 09:45 BP 155/23 H 04/25/17 09:45 Pulse Ox 94 L 04/25/17 09:50 - Exam General: Alert, Oriented, Cooperative HEENT: PERRLA, Conjunctiva Clear, Mucosa Moist & [place] Neck: Supple, Trachea Midline, Other (Has an erythematous small boil on the posterior neck just over the midline. It is not fluctuant. There is no surrounding induration or edema. It is slightly erythematous. Very tender.) Lungs: Clear to Auscultation Cardiovascular: Regular Rate, Regular Rhythm, Normal S1, Normal S2 GI/Abdominal Exam: Normal Bowel Sounds, Soft, Non-Tender, No Organomegaly, No Mass (Male) Exam: Deferred Rectal (Males) Exam: Deferred Back Exam: Normal Inspection, Full Range of Motion Extremities: Normal Inspection, Normal Range of Motion, Non-Tender, No Pedal Edema (Status post toe amputation.) Skin: Warm (Feet bilaterally show cracked skin on plantar surface and ulcers on toes. Left foot has a large crack at the base of the great toe and on the plantar surface of the small toe. Right foot shows ulcers on 3rd and 4th toes, plantar surface and small healing ulcer on the dorsal surface of 2nd toe.) Neuro Extensive - Mental Status: Alert, Oriented x3, Normal Mood/Affect Psychiatric: Alert - Patient Data Result Diagrams: 04/25/17 09:50 04/25/17 09:50 Imaging Impressions Last 24 hrs: Head CT was reportedly negative. EKG INTERPRETATION EKG Date: 04/25/17 (Reportedly negative. No arrhythmias.) *Q Meaningful Use (ADM) - VTE *Q VTE Criteria *Q: - Stroke *Q Stroke Criteria *Q: - AMI *Q AMI Criteria *Q: - Problem List (1) Hypoglycemia SNOMED Code(s): 333633401 ICD Code: E16.2 - HYPOGLYCEMIA, UNSPECIFIED Status: Acute Current Visit: Yes Problem Details: Hypoglycemia, unclear etiology. It does sound as though the patient has had frequent episodes of hypoglycemia in the past. It may be a combination of not eating, not sleeping, and the cold that triggered this episode of hypoglycemia. He is not on any medications that should trigger hypoglycemia, either for diabetes or for mental health. His history of alcoholism could be an underlying risk factor as well. At this point will monitor 4 times a day blood sugars, refeed and see the patient does. (2) Hypothermia SNOMED Code(s): 482785491 ICD Code: T68.XXXA - HYPOTHERMIA, INITIAL ENCOUNTER Status: Acute Current Visit: Yes Problem Details: Secondary to being inappropriately dressed walking outside in subzero temperatures. Patient has been rewarmed. Monitor. (3) Nutrition deficiency due to insufficient food SNOMED Code(s): 981786624 ICD Code: E63.9 - NUTRITIONAL DEFICIENCY, UNSPECIFIED; T73.0XXA - STARVATION , INITIAL ENCOUNTER Status: Acute Current Visit: Yes Problem Details: Patient's albumin is adequate and he certainly isn't cachectic. We'll re-feed and see how he does. (4) Unresponsive episode SNOMED Code(s): 723833255 ICD Code: R41.89 - OTH SYMPTOMS AND SIGNS W COGNITIVE FUNCTIONS AND AWARENESS Status: Acute Current Visit: Yes Problem Details: Possibly secondary to #1 and #2, but I do want to rule out any cardiac etiology. We'll maintain the patient on a heart monitor while here and observe for the next 24- 48 hours to see if there is any potential arrhythmia cause. (5) Bipolar 1 disorder, manic, mild Status: Acute Current Visit: Yes Problem Details: Patient's self-reported symptoms to suggest hypomania although given outside friend's opinion this isn' t acute. Asked school social worker to contact the County and see if we can make sure this patient is plugged in. I reviewed old records and am not able to see that the patient is following with mental health or at [facility] in the last 12 months. He says he is, and has a geriatric social work professor through [employer], so will look into this. Symptoms do not sound committable at this time, but outpatient follow-up will be important. (6) Toe ulcer SNOMED Code(s): 682460641 ICD Code: L97.509 - NON-PRESSURE CHRONIC ULCER OTH PRT UNSP FOOT W UNSP SEVERITY Status: Acute Current Visit: Yes Problem Details: As per Exam above. Will soak and dress BID. Patient instructed to follow up on discharge with podiatry. Problem List Initiated/Reviewed/Updated: Yes Orders Last 24hrs: Active Orders 24 hr Category Date Time Status Furosemide [Lasix] Med 04/26/17 09:00 Ordered 20 mg PO DAILY Levothyroxine [Synthroid] Med 04/26/17 06:00 Ordered 50 mcg PO DAILY@0600 Mirtazapine [Remeron] Med 04/25/17 21:00 Ordered 15 mg PO BEDTIME Omeprazole [Omeprazole] Med 04/26/17 07:30 Ordered 40 mg PO ACBREAKFAST Pregabalin [Lyrica] Med 04/25/17 21:00 Ordered 200 mg PO BID Venlafaxine [Effexor XR] Med 04/26/17 09:00 Ordered 300 cap PO DAILY rOPINIRole [Requip] Med 04/25/17 21:00 Ordered 3 mg PO BID Medication Orders Acetaminophen (Tylenol) 650 mg PO Q4H PRN PRN Reason: Pain (Mild 1-3)/fever Furosemide (Lasix) 20 mg PO DAILY [facility] Levothyroxine Sodium (Synthroid) 50 mcg PO DAILY@0600 [facility] Non-Formulary Medication (Mirtazapine [Remeron]) 15 mg PO BEDTIME [facility] Non-Formulary Medication (Omeprazole [Omeprazole]) 40 mg PO ACBREAKFAST [facility] Non-Formulary Medication (Pregabalin [Lyrica]) 200 mg PO BID [facility] Non-Formulary Medication (Ropinirole [Requip]) 3 mg PO BID [facility] Ondansetron HCl (Zofran Odt) 4 mg PO Q4H PRN PRN Reason: nausea, able to take PO Sodium Chloride (Saline Flush) 10 ml FLUSH ASDIRECTED PRN PRN Reason: Keep Vein Open Venlafaxine HCl (Effexor Xr) mg PO DAILY [facility] Assessment/Plan Comment:: We'll observe closely for other reasons for the patient's syncopal episodes. Work on outpatient follow-up and appropriate care to make sure the patient is eating and doing appropriate self-cares. Discussed CODE STATUS at length with the patient and the patient is a FULL CODE.
[2017-04-25] MEDS: rOPINIRole 1 MG Tab PO SCH ×2 (14:23→20:09)
[2017-04-25] MEDS: Venlafaxine 150 MG Cap.ER PO SCH (14:24)
--- NOTE | 2017-04-25 15:52 | PCM.SN ---
- Free Text/Narrative Note: Nursing staff was unable to remove the patient's right tibial IO. I was asked to assist in removal. Using a twisting motion I was able to remove the IO from the tibia with difficulty. Scant bleeding following removal. Light pressure dressing applied.
[2017-04-25] MEDS: Acetaminophen 325 MG Tab PO PRN (20:00)
[2017-04-25] MEDS: Pregabalin 100 MG Cap PO SCH (20:08)
[2017-04-25] MEDS ORDERED: rOPINIRole 1 MG Tab PO SCH (21:00)
[2017-04-25] MEDS ORDERED: Mirtazapine 15 MG Tab PO SCH (21:00)
[2017-04-26] MEDS ORDERED: Levothyroxine 50 MCG Tab PO SCH (06:00)
--- NOTE | 2017-04-26 07:20 | PCM.PN ---
- General Info Date of Service: 04/26/17 Admission Dx/Problem (Free Text): Patient is a 51 yo male admitted for hypoglycemia and hypothermia with LOC, HD # 2, doing well this am. No SOB, N/V, or diarrhea. Eating well. Slept well overnight but very tired this am. Does complain of overall body muscle aches. Would like to d/c home. Tele showed no arrythmias. Labs normal this am. Functional Status: Reports: Tolerating Diet, Ambulating, Urinating - Patient Data Vitals - Most Recent: Last Vital Signs Temp 36.8 C 04/26/17 04:00 Pulse 67 04/26/17 04:00 Resp 17 04/26/17 04:00 BP 138/74 04/26/17 04:00 Pulse Ox 98 04/26/17 04:00 Weight - Most Recent: 104.916 kg I&O - Last 24 Hours: Intake & Output 04/25/17 04/26/17 04/26/17 22:59 06:59 14:59 Intake Total 300 1050 Output Total 275 1425 Balance 25 -375 Lab Results Last 24 Hours: Laboratory Results - last 24 hr 04/25/17 04/25/17 04/26/17 Range/Units 16:47 21:39 06:12 WBC 6.4 (4.5-12.0) X10-3/uL RBC 4.39 (4.30-5.75) x10(6)uL Hgb 13.3 (11.5-15.5) g/dL Hct 39.5 (30.0-51.3) % MCV 90.0 (80-96) fL MCH 30.3 (27.7-33.6) pg MCHC 33.7 (32.2-35.4) g/dL RDW 13.0 (11.5-15.5) % Plt Count 278 (125-369) X10(3)uL MPV 7.7 (7.4-10.4) fL Neut % (Auto) 47.6 (46-82) % Lymph % (Auto) 35.5 (13-37) % Lyman % (Auto) 11.4 (4-12) % Eos % (Auto) 5 (1.0-5.0) % Baso % (Auto) 0 (0-2) % Neut # (Auto) 3.0 (1.6-8.3) # Lymph # (Auto) 2.3 (0.6-5.0) # Lyman # (Auto) 0.7 (0.0-1.3) # Eos # (Auto) 0.3 (0.0-0.8) # Baso # (Auto) 0.0 (0.0-0.2) # Sodium (135-145) mmol/L Potassium (3.5-5.3) mmol/L Chloride (100-110) mmol/L Carbon Dioxide (21-32) mmol/L BUN (7-18) mg/dL Creatinine (0.70-1.30) mg/dL Est Cr Clr Drug Dosing mL/min Estimated GFR (MDRD) (>60) BUN/Creatinine Ratio (9-20) Glucose (80-116) mg/dL POC Glucose 141 H 79 L (80-116) mg/dL Calcium (8.6-10.2) mg/dL Total Bilirubin (0.1-1.3) mg/dL AST (5-25) IU/L ALT (12-36) U/L Alkaline Phosphatase (56-112) IU/L Total Protein (6.0-8.0) g/dL Albumin (3.5-5.2) g/dL Globulin g/dL Albumin/Globulin Ratio 04/26/17 Range/Units 06:12 WBC (4.5-12.0) X10-3/uL RBC (4.30-5.75) x10(6)uL Hgb (11.5-15.5) g/dL Hct (30.0-51.3) % MCV (80-96) fL MCH (27.7-33.6) pg MCHC (32.2-35.4) g/dL RDW (11.5-15.5) % Plt Count (125-369) X10(3)uL MPV (7.4-10.4) fL Neut % (Auto) (46-82) % Lymph % (Auto) (13-37) % Lyman % (Auto) (4-12) % Eos % (Auto) (1.0-5.0) % Baso % (Auto) (0-2) % Neut # (Auto) (1.6-8.3) # Lymph # (Auto) (0.6-5.0) # Lyman # (Auto) (0.0-1.3) # Eos # (Auto) (0.0-0.8) # Baso # (Auto) (0.0-0.2) # Sodium 144 (135-145) mmol/L Potassium 4.0 (3.5-5.3) mmol/L Chloride 108 (100-110) mmol/L Carbon Dioxide 29 (21-32) mmol/L BUN 14 (7-18) mg/dL Creatinine 0.8 (0.70-1.30) mg/dL Est Cr Clr Drug Dosing 119.90 mL/min Estimated GFR (MDRD) > 60 (>60) BUN/Creatinine Ratio 17.5 (9-20) Glucose 113 (80-116) mg/dL POC Glucose (80-116) mg/dL Calcium 8.7 (8.6-10.2) mg/dL Total Bilirubin 0.1 (0.1-1.3) mg/dL AST 24 D (5-25) IU/L ALT 43 H (12-36) U/L Alkaline Phosphatase 64 (56-112) IU/L Total Protein 6.3 (6.0-8.0) g/dL Albumin 3.1 L (3.5-5.2) g/dL Globulin 3.2 g/dL Albumin/Globulin Ratio 1.0 Med Orders - Current: Current Medications Acetaminophen (Tylenol) 650 mg PO Q4H PRN PRN Reason: Pain (Mild 1-3)/fever Last Admin: 04/25/17 20:00 Dose: 650 mg Furosemide (Lasix) 20 mg PO DAILY [facility] Levothyroxine Sodium (Synthroid) 50 mcg PO DAILY@0600 [facility] Last Admin: 04/26/17 06:52 Dose: 50 mcg Mirtazapine (Remeron) 15 mg PO BEDTIME [facility] Last Admin: 04/25/17 20:08 Dose: 15 mg Ondansetron HCl (Zofran Odt) 4 mg PO Q4H PRN PRN Reason: nausea, able to take PO Pantoprazole Sodium (Protonix) 40 mg PO ACBREAKFAST [facility] Last Admin: 04/26/17 06:52 Dose: 40 mg Pregabalin (Lyrica) 200 mg PO BID [facility] Last Admin: 04/25/17 20:08 Dose: 200 mg Ropinirole HCl (Requip) 3 mg PO BID [facility] Last Admin: 04/25/17 20:09 Dose: 3 mg Sodium Chloride (Saline Flush) 10 ml FLUSH ASDIRECTED PRN PRN Reason: Keep Vein Open Venlafaxine HCl (Effexor Xr) 300 mg PO DAILY [facility] Last Admin: 04/25/17 14:24 Dose: 300 mg Discontinued Medications Ropinirole HCl (Requip) 3 mg PO BID [facility] Venlafaxine HCl (Effexor Xr) 300 mg PO DAILY [facility] - Exam General: Alert, Oriented, Cooperative, No Acute Distress HEENT: Pupils Equal, Pupils Reactive Neck: Supple Lungs: Clear to Auscultation, Normal Respiratory Effort Cardiovascular: Regular Rate, Regular Rhythm, No Murmurs GI/Abdominal Exam: Normal Bowel Sounds, Soft, Non-Tender Extremities: Normal Inspection (unchanged. IO site shows no redness, no inflammation. ) - Problem List & Annotations (1) Hypoglycemia SNOMED Code(s): 672192166 Code(s): E16.2 - HYPOGLYCEMIA, UNSPECIFIED Status: Acute Current Visit: Yes Annotation/Comment:: Blood sugars stable overnight. A1C 6.5% on admission. Recommend eating regular meals and snacks, follow up with PCP this week at [facility] to get back in to routine DM care. (2) Hypothermia SNOMED Code(s): 541725627 Code(s): T68.XXXA - HYPOTHERMIA, INITIAL ENCOUNTER Status: Acute Current Visit: Yes Annotation/Comment:: Secondary to being inadequately dressed walking outside in subzero temperatures. Resolved. (3) Nutrition deficiency due to insufficient food SNOMED Code(s): 720565331 Code(s): E63.9 - NUTRITIONAL DEFICIENCY, UNSPECIFIED; T73.0XXA - STARVATION, INITIAL ENCOUNTER Status: Acute Current Visit: Yes Annotation/Comment:: Patient's albumin is adequate, no evidence of significant malnutrition. Eating well here. Contacted SS and they will do a welfare check next week and he has a comp field case manager as well who will be following up with him. (4) Unresponsive episode SNOMED Code(s): 132543128 Code(s): R41.89 - OTH SYMPTOMS AND SIGNS W COGNITIVE FUNCTIONS AND AWARENESS Status: Acute Current Visit: Yes Annotation/Comment:: No evidence of arrythmia. Secondary to #1, #2. (5) Bipolar 1 disorder, manic, mild Status: Acute Current Visit: Yes Annotation/Comment:: County will follow up this coming week to make sure patient follows through with mental health services. (6) Toe ulcer SNOMED Code(s): 179977556 Code(s): L97.509 - NON-PRESSURE CHRONIC ULCER OTH PRT UNSP FOOT W UNSP SEVERITY Status: Acute Current Visit: Yes Annotation/Comment:: Patient instructed to follow up on discharge with podiatry. - Problem List Review Problem List Initiated/Reviewed/Updated: Yes - My Orders Last 24 Hours: My Active Orders 04/25/17 13:47 rOPINIRole [Requip] 3 mg PO BID 04/25/17 14:00 Venlafaxine [Effexor XR] 300 mg PO DAILY 04/25/17 15:08 Communication Order [RC] BID 04/25/17 21:00 Mirtazapine [Remeron] 15 mg PO BEDTIME Pregabalin [Lyrica] 200 mg PO BID 04/26/17 06:00 Levothyroxine [Synthroid] 50 mcg PO DAILY@0600 04/26/17 07:16 CREATINE KINASE,CK [CHEM] Stat 04/26/17 07:30 Pantoprazole [ProTONIX] 40 mg PO ACBREAKFAST 04/26/17 09:00 Furosemide [Lasix] 20 mg PO DAILY - Plan Plan:: Added a CK this am to rule out rhabdomyolysis. If this is negative, patient can discharge home today.
[2017-04-26] MEDS ORDERED: Pantoprazole 40 MG Tab.CR PO SCH (07:30)
[2017-04-26] MEDS: Acetaminophen 325 MG Tab PO PRN (08:11)
[2017-04-26] MEDS: rOPINIRole 1 MG Tab PO SCH (08:12)
[2017-04-26] MEDS: Venlafaxine 150 MG Cap.ER PO SCH (08:12)
--- NOTE | 2017-04-26 08:39 | PCM.DCSUM1 ---
Discharge Summary - Hospital Course Free Text/Narrative:: Date of admission: 04/25/2017 Date of discharge: 04/26/2017 Admission dx: hypoglycemia, hypothermia. Discharge dx: same Secondary dx: Chronic post-concussive encephalopathy Bipolar disorder, currently hypomanic. DM 2, currently diet controlled, fallen out of follow up. Dx not addressed during hospitalization: YAMILETH CVD Hypothyroidism Hyperlipidemia HPI: Patient is a 51 yo male with bipolar and hx of substance abuse. Walked in subzero temps 1 1/2 [address] to the police station for his BID breathalizer as part of his probation. Was very cold by the time he got there. Hadn't eaten breakfast that day, hadn't eaten or slept much for the previous week. On leaving the police station, became quickly chilled and then doesn't recall anything further. A bystander saw him stagger and fall into a snowbank. 911 was called and EMS found him cold, unresponsive with apnea and CPR in progress. When they assessed him he had a pulse, but was breathing very slowly. They did rescue breathing, checked a blood sugar which was 41 and gave glucagon. By the time he arrived in the ED, was receiving rescue breathing but had a strong pulse and good blood pressure, blood sugar in the 100s. Was resuscitated with bear hugger and was quickly rousable, awake, alert and oriented. Was admitted for further monitoring. Consults: None Procedures: IO placement right tibia. Removed within 12 hours of placement. - Discharge Data Discharge Date: 04/26/17 Discharge Disposition: Home, Self-Care 01 Condition: Fair - Discharge Diagnosis/Problem(s) (1) Hypoglycemia SNOMED Code(s): 710458945 ICD Code: E16.2 - HYPOGLYCEMIA, UNSPECIFIED Status: Acute Current Visit: Yes Problem Details: Blood sugars stable overnight. A1C 6.5% on admission. Recommend eating regular meals and snacks, follow up with PCP this week at [facility] to get back in to routine DM care. (2) Hypothermia SNOMED Code(s): 003730394 ICD Code: T68.XXXA - HYPOTHERMIA, INITIAL ENCOUNTER Status: Acute Current Visit: Yes Problem Details: Secondary to being inadequately dressed walking outside in subzero temperatures. Resolved. (3) Nutrition deficiency due to insufficient food SNOMED Code(s): 961551919 ICD Code: E63.9 - NUTRITIONAL DEFICIENCY, UNSPECIFIED; T73.0XXA - STARVATION , INITIAL ENCOUNTER Status: Acute Current Visit: Yes Problem Details: Patient's albumin is adequate, no evidence of significant malnutrition. Eating well here. Contacted SS and they will do a welfare check next week and he has a transplant case manager as well who will be following up with him. (4) Unresponsive episode SNOMED Code(s): 231287317 ICD Code: R41.89 - OTH SYMPTOMS AND SIGNS W COGNITIVE FUNCTIONS AND AWARENESS Status: Acute Current Visit: Yes Problem Details: No evidence of arrythmia. Secondary to #1, #2. (5) Bipolar 1 disorder, manic, mild Status: Acute Current Visit: Yes Problem Details: County will follow up this coming week to make sure patient follows through with mental health services. (6) Toe ulcer SNOMED Code(s): 435807140 ICD Code: L97.509 - NON-PRESSURE CHRONIC ULCER OTH PRT UNSP FOOT W UNSP SEVERITY Status: Acute Current Visit: Yes Problem Details: Patient instructed to follow up on discharge with podiatry. - Patient Instructions Diet: Heart Healthy Diet, Diabetic Diet Activity: As Tolerated Wound/Incision Care: Change Dressing Daily - Discharge Plan Home Medications: Home Meds Fenofibrate Nanocrystallized [Fenofibrate] 145 mg PO DAILY 12/28/16 [History] Furosemide [Lasix] 20 mg PO DAILY 12/28/16 [History] Levothyroxine [Synthroid] 50 mcg PO DAILY@0600 12/28/16 [History] Mirtazapine [Remeron] 15 mg PO BEDTIME 12/28/16 [History] Venlafaxine HCl [Venlafaxine ER] 300 cap PO DAILY 12/28/16 [History] rOPINIRole [Requip] 3 mg PO BID 12/28/16 [History] Diclofenac Sodium [Voltaren] 75 mg PO BIDMEALS 04/25/17 [History] Omeprazole 40 mg PO ACBREAKFAST 04/25/17 [History] Pregabalin [Lyrica] 200 mg PO BID 04/25/17 [History] Rosuvastatin [Crestor] 20 mg PO DAILY 04/25/17 [History] Acetaminophen [Tylenol] 650 mg PO Q4H PRN tablet 04/26/17 [Rx] Forms: ED Department Discharge Referrals: Bambi Esquivel, [employer] DRIVER [Primary Care Provider] - - Discharge Summary/Plan Comment DC Time >30 min.: Yes Discharge Summary/Plan Comment: CK at discharge was within normal limits at 117. See progress note same day for further details as to day of discharge condition and px exam. - Patient Data Vitals - Most Recent: Last Vital Signs Temp 36.8 C 04/26/17 04:00 Pulse 67 04/26/17 04:00 Resp 17 04/26/17 04:00 BP 138/74 04/26/17 04:00 Pulse Ox 98 04/26/17 04:00 Weight - Most Recent: 104.916 kg I&O - Last 24 hours: Intake & Output 04/25/17 04/26/17 04/26/17 22:59 06:59 14:59 Intake Total 300 1050 Output Total 275 1425 Balance 25 -375 Lab Results - Last 24 hrs: Laboratory Results - last 24 hr 04/25/17 04/25/17 04/26/17 Range/Units 16:47 21:39 06:12 WBC 6.4 (4.5-12.0) X10-3/uL RBC 4.39 (4.30-5.75) x10(6)uL Hgb 13.3 (11.5-15.5) g/dL Hct 39.5 (30.0-51.3) % MCV 90.0 (80-96) fL MCH 30.3 (27.7-33.6) pg MCHC 33.7 (32.2-35.4) g/dL RDW 13.0 (11.5-15.5) % Plt Count 278 (125-369) X10(3)uL MPV 7.7 (7.4-10.4) fL Neut % (Auto) 47.6 (46-82) % Lymph % (Auto) 35.5 (13-37) % [place] % (Auto) 11.4 (4-12) % Eos % (Auto) 5 (1.0-5.0) % Baso % (Auto) 0 (0-2) % Neut # (Auto) 3.0 (1.6-8.3) # Lymph # (Auto) 2.3 (0.6-5.0) # [place] # (Auto) 0.7 (0.0-1.3) # Eos # (Auto) 0.3 (0.0-0.8) # Baso # (Auto) 0.0 (0.0-0.2) # Sodium (135-145) mmol/L Potassium (3.5-5.3) mmol/L Chloride (100-110) mmol/L Carbon Dioxide (21-32) mmol/L BUN (7-18) mg/dL Creatinine (0.70-1.30) mg/dL Est Cr Clr Drug Dosing mL/min Estimated GFR (MDRD) (>60) BUN/Creatinine Ratio (9-20) Glucose (80-116) mg/dL POC Glucose 141 H 79 L (80-116) mg/dL Calcium (8.6-10.2) mg/dL Total Bilirubin (0.1-1.3) mg/dL AST (5-25) IU/L ALT (12-36) U/L Alkaline Phosphatase (56-112) IU/L Creatine Kinase (60-160) IU/L Total Protein (6.0-8.0) g/dL Albumin (3.5-5.2) g/dL Globulin g/dL Albumin/Globulin Ratio 04/26/17 04/26/17 Range/Units 06:12 06:12 WBC (4.5-12.0) X10-3/uL RBC (4.30-5.75) x10(6)uL Hgb (11.5-15.5) g/dL Hct (30.0-51.3) % MCV (80-96) fL MCH (27.7-33.6) pg MCHC (32.2-35.4) g/dL RDW (11.5-15.5) % Plt Count (125-369) X10(3)uL MPV (7.4-10.4) fL Neut % (Auto) (46-82) % Lymph % (Auto) (13-37) % [place] % (Auto) (4-12) % Eos % (Auto) (1.0-5.0) % Baso % (Auto) (0-2) % Neut # (Auto) (1.6-8.3) # Lymph # (Auto) (0.6-5.0) # [place] # (Auto) (0.0-1.3) # Eos # (Auto) (0.0-0.8) # Baso # (Auto) (0.0-0.2) # Sodium 144 (135-145) mmol/L Potassium 4.0 (3.5-5.3) mmol/L Chloride 108 (100-110) mmol/L Carbon Dioxide 29 (21-32) mmol/L BUN 14 (7-18) mg/dL Creatinine 0.8 (0.70-1.30) mg/dL Est Cr Clr Drug Dosing 119.90 mL/min Estimated GFR (MDRD) > 60 (>60) BUN/Creatinine Ratio 17.5 (9-20) Glucose 113 (80-116) mg/dL POC Glucose (80-116) mg/dL Calcium 8.7 (8.6-10.2) mg/dL Total Bilirubin 0.1 (0.1-1.3) mg/dL AST 24 D (5-25) IU/L ALT 43 H (12-36) U/L Alkaline Phosphatase 64 (56-112) IU/L Creatine Kinase 117 (60-160) IU/L Total Protein 6.3 (6.0-8.0) g/dL Albumin 3.1 L (3.5-5.2) g/dL Globulin 3.2 g/dL Albumin/Globulin Ratio 1.0 Med Orders - Current: Current Medications Acetaminophen (Tylenol) 650 mg PO Q4H PRN PRN Reason: Pain (Mild 1-3)/fever Last Admin: 04/26/17 08:11 Dose: 650 mg Furosemide (Lasix) 20 mg PO DAILY [facility] Last Admin: 04/26/17 08:12 Dose: 20 mg Levothyroxine Sodium (Synthroid) 50 mcg PO DAILY@0600 [facility] Last Admin: 04/26/17 06:52 Dose: 50 mcg Mirtazapine (Remeron) 15 mg PO BEDTIME [facility] Last Admin: 04/25/17 20:08 Dose: 15 mg Ondansetron HCl (Zofran Odt) 4 mg PO Q4H PRN PRN Reason: nausea, able to take PO Pantoprazole Sodium (Protonix) 40 mg PO ACBREAKFAST [facility] Last Admin: 04/26/17 06:52 Dose: 40 mg Pregabalin (Lyrica) 200 mg PO BID [facility] Last Admin: 04/25/17 20:08 Dose: 200 mg Ropinirole HCl (Requip) 3 mg PO BID [facility] Last Admin: 04/26/17 08:12 Dose: 3 mg Sodium Chloride (Saline Flush) 10 ml FLUSH ASDIRECTED PRN PRN Reason: Keep Vein Open Venlafaxine HCl (Effexor Xr) 300 mg PO DAILY [facility] Last Admin: 04/26/17 08:12 Dose: 300 mg Discontinued Medications Ropinirole HCl (Requip) 3 mg PO BID [facility] Venlafaxine HCl (Effexor Xr) 300 mg PO DAILY [facility] *Q Meaningful Use (DIS) - VTE *Q VTE Criteria *Q: - Stroke *Q Stroke Criteria *Q: - AMI *Q AMI Criteria *Q:
[2017-04-26] MEDS ORDERED: Venlafaxine 150 MG Cap.ER PO SCH (09:00)
[2017-04-26] MEDS ORDERED: Furosemide 20 MG Tab PO SCH (09:00)
[2017-04-26 11:18] VITALS: BP 130/87
[2017-04-26] MEDS: Pregabalin 100 MG Cap PO SCH (11:39)
== END 2017-04-26 12:55 | disposition home or self-care (01) ==
LOC: FB.ED 09:42 → FB.MS 11:27
PROVIDERS: ADMIT Family Medicine; ATTEND Family Medicine
DX: E16.2 Hypoglycemia, unspecified (principal); T68.XXXA Hypothermia, initial encounter; F07.81 Postconcussional syndrome; F31.9 Bipolar disorder, unspecified; E63.9 Nutritional deficiency, unspecified; T73.0XXA Starvation, initial encounter; R41.89 Other symptoms and signs involving cognitive functions and awareness; L97.509 Non-pressure chronic ulcer of other part of unspecified foot with unspecified severity; E11.9 Type 2 diabetes mellitus without complications; G47.33 Obstructive sleep apnea (adult) (pediatric); E78.5 Hyperlipidemia, unspecified; E03.9 Hypothyroidism, unspecified; Z79.899 Other long term (current) drug therapy; Z87.891 Personal history of nicotine dependence; X31.XXXA Exposure to excessive natural cold, initial encounter
CPT/HCPCS: 36415; 36600; 70450; 71045; 80053; 80305; 81001; 82550; 82803; 82962; 83036; 84443; 84484; 85025; 85610; 86140; 93005; A9270; G0378; G0480; 36680; 51702; 96374; 99285; J2310

== ENCOUNTER 2018-12-29 01:12 | Emergency (ER) | payer MEDICAID ==
[2018-12-29] MEDS ORDERED: rOPINIRole 1 MG Tab PO SCH (01:52)
--- NOTE | 2018-12-29 02:44 | EDM.PDOC ---
ED HPI GENERAL MEDICAL PROBLEM - General Stated Complaint: LEG PAIN Time Seen by Provider: 12/29/18 01:25 Source of Information: Reports: Patient, Old Records History Limitations: Reports: No Limitations - History of Present Illness INITIAL COMMENTS - FREE TEXT/NARRATIVE: Patient is a very pleasant 53-year-old male who presents tonight with concern for leg cramping and worsening restless leg symptoms that started within the past 24 hours or so and he hasn't picked up his Requip yet. He wonders if he is withdrawing off of it. Other than the leg and muscle cramping, he denies any other symptoms. He has a severe enough that it is a bit difficult for him to walk at times, but no other muscles seem to be having trouble. He denies chest pain, shortness of breath, feeling sweaty or dizzy. He doesn't have any other problems or concerns tonight. He states there is a refill for him at the pharmacy but he didn't get around to picking it up today - Related Data Allergies Allergy/AdvReac Type Severity Reaction Status Date / Time No Known Allergies Allergy Verified 04/27/17 05:51 Home Meds: Home Meds Fenofibrate Nanocrystallized [Fenofibrate] 145 mg PO DAILY 12/28/16 [History] Furosemide [Lasix] 20 mg PO DAILY 12/28/16 [History] Levothyroxine [Synthroid] 50 mcg PO DAILY@0600 12/28/16 [History] Mirtazapine [Remeron] 15 mg PO BEDTIME 12/28/16 [History] Venlafaxine HCl [Venlafaxine ER] 300 cap PO DAILY 12/28/16 [History] rOPINIRole [Requip] 3 mg PO BID 12/28/16 [History] Diclofenac Sodium [Voltaren] 75 mg PO BIDMEALS 04/25/17 [History] Omeprazole 40 mg PO ACBREAKFAST 04/25/17 [History] Pregabalin [Lyrica] 200 mg PO BID 04/25/17 [History] Rosuvastatin [Crestor] 20 mg PO DAILY 04/25/17 [History] Acetaminophen [Tylenol] 650 mg PO Q4H PRN tablet 04/26/17 [Rx] Past Medical History HEENT History: Reports: Head Other HEENT History: Pt has slight pimple type bump on the back of his neck and when he became conscious and alert complained of pain. Cardiovascular History: Reports: Other (See Below) Other Cardiovascular History: high triglycerides Musculoskeletal History: Reports: Back Pain, Chronic Other Musculoskeletal History: ulcers to bilat feet. R & L gt toes, 3rd toe R foot, 3& 5th toes L foot. Numerous broken bones Neurological History: Reports: Concussion, Other (See Below) Other Neuro History: Pt stated he has had many concussions and some brain hemorraging. About 30 years ago. Feels like this may be part of some mental illness. Psychiatric History: Reports: Anxiety, Bipolar, Depression Endocrine/Metabolic History: Reports: Diabetes, Type II Other Endocrine/Metabolic History: diagnosed about 1 year ago Other Dermatologic History: ulcers to bilat feet. R & L gt toes, 3rd toe R foot , 3& 5th toes L foot. Open wound on toe 'months.' - Past Surgical History Other Musculoskeletal Surgeries/Procedures:: R shoulder rotator cuff surg, carpal tunnel Social & Family History - Family History Family Medical History: Noncontributory - Tobacco Use Smoking Status *Q: Current Every Day Smoker - Caffeine Use Caffeine Use: Reports: Soda - Alcohol Use Alcohol Use History: No - Recreational Drug Use Recreational Drug Use: No - Living Situation & Occupation Occupation: Disabled ED ROS GENERAL - Review of Systems Review Of Systems: ROS reveals no pertinent complaints other than HPI. ED EXAM, GENERAL - Physical Exam Exam: See Below Free Text/Narrative:: Gen.: Alert, very polite. Speech is normal rate and volume and he answers questions appropriately. Heart is regular rate and rhythm. Lungs are clear throughout with no wheezes or crackles, abdomen positive bowel sounds, soft nontender. Peripheral pulses are +2 in both the upper and lower extremity. He has painful cramping of both of his lower legs in the calf region, which he is massaging and walking around to help relieve. There is no evidence of any swelling or asymmetry side to side. He does not have any redness or erythema in that region. He is able to walk with relatively normal gait adjusting for pain and has equal strength [id number]. He does not have any other significant or major muscle cramping noted. Sensation is intact in his legs and throughout Course - Vital Signs Text/Narrative:: Patient with concern for being off Requip for the past 2 days, he has not picked up his refill prescription at the drugstore. Given a dose here but does take a while to onset. I briefly researched other options to see if there is anything else to help with treatment for this condition and was not able to find any good alternatives. Patient was satisfied with dose of Requip and also given a Toradol shot prior to departure. He still had significant discomfort but was hopeful that it would improve rapidly as he moved to a lower anxiety environment. - Orders/Labs/Meds Orders: Active Orders 24 hr Category Date Time Status rOPINIRole [Requip] Med 12/29/18 01:52 Active 3 mg PO BEDTIME Medication Orders Ropinirole HCl (Requip) 3 mg PO BEDTIME [facility] Last Admin: 12/29/18 02:14 Dose: 3 mg Meds: Medications Generic Name Dose Route Start Last Admin Trade Name Freq PRN Reason Stop Dose Admin Ropinirole HCl 3 mg 12/29/18 01:52 12/29/18 02:14 Requip PO 3 mg BEDTIME [facility] Administration Discontinued Medications Generic Name Dose Route Start Last Admin Trade Name Freq PRN Reason Stop Dose Admin Ketorolac Tromethamine 30 mg 12/29/18 02:46 12/29/18 02:55 Toradol IM 12/29/18 02:47 30 mg ONETIME ONE Administration Departure - Departure Time of Disposition: 03:15 Disposition: Home, Self-Care 01 Condition: Fair Clinical Impression: Restless leg syndrome, uncontrolled, Drug withdrawal - Discharge Information *PRESCRIPTION DRUG MONITORING PROGRAM REVIEWED*: Yes *COPY OF PRESCRIPTION DRUG MONITORING REPORT IN PATIENT FAVIAN: No Instructions: Restless Legs Syndrome Referrals: Bambi Esquivel, EXCAVATOR OPERATOR [Primary Care Provider] - Additional Instructions: fruit picker Requip in the morning and take first dose when get from pharmacy continue to drink lots of liquid to help with cramping dose of toradol given here, no ibuprofen until after back home for 6hrs at least - My Orders Last 24 Hours: My Active Orders 12/29/18 01:52 rOPINIRole [Requip] 3 mg PO BEDTIME - Assessment/Plan Last 24 Hours: My Active Orders 12/29/18 01:52 rOPINIRole [Requip] 3 mg PO BEDTIME
[2018-12-29] MEDS ORDERED: Ketorolac 30 MG/ML SDV IM ONE (02:46)
[2018-12-31 21:36] VITALS: BP 114/88; PULSE 93
== END 2018-12-29 03:05 | disposition home or self-care (01) ==
LOC: FB.ED 01:12
DX: G25.81 Restless legs syndrome (principal); F19.239 Other psychoactive substance dependence with withdrawal, unspecified; F17.200 Nicotine dependence, unspecified, uncomplicated; E11.9 Type 2 diabetes mellitus without complications; F32.9 Major depressive disorder, single episode, unspecified; F41.9 Anxiety disorder, unspecified; Z79.899 Other long term (current) drug therapy
CPT/HCPCS: 96372; 99283; A9270; J1885

== ENCOUNTER 2019-02-24 15:34 | Emergency (ER) | payer MEDICAID ==
--- NOTE | 2019-02-24 16:28 | EDM.PDOC ---
ED HPI GENERAL MEDICAL PROBLEM - General Chief Complaint: Skin Complaint Stated Complaint: R SIDE FACIAL AND NECK PAIN Time Seen by Provider: 02/24/19 16:00 Source of Information: Reports: Patient, Old Records History Limitations: Reports: No Limitations - History of Present Illness INITIAL COMMENTS - FREE TEXT/NARRATIVE: Rashad [facility] into [facility] ED with a painful lesion overlying the R hoahaoism within the hairline, and apparent swelling with reddness overlying the parotid extending to the R anterior neck. This has been present for 3 days, and diagnosed as a cellulitis at the [facility] yesterday. He did not fill the antibx prescription reporting lack of funds. Pain appears to be escalating over the past 24 hours. There are no visual sxs. He is a Type II DM, medication compliance unknown. Headache, bilat eyes, R side of face Pain Score (Numeric/FACES): 6 - Related Data Allergies Allergy/AdvReac Type Severity Reaction Status Date / Time No Known Allergies Allergy Verified 02/24/19 15:47 Home Meds: Home Meds Levothyroxine [Synthroid] 50 mcg PO DAILY@0600 12/28/16 [History] Venlafaxine HCl [Venlafaxine ER] 300 cap PO DAILY 12/28/16 [History] rOPINIRole [Requip] 3 mg PO BID 12/28/16 [History] Acetaminophen [Tylenol] 650 mg PO Q4H PRN tablet 04/26/17 [Rx] Past Medical History HEENT History: Reports: Head Other HEENT History: Pt has slight pimple type bump on the back of his neck and when he became conscious and alert complained of pain. Cardiovascular History: Reports: High Cholesterol Other Cardiovascular History: high triglycerides Musculoskeletal History: Reports: Arthritis, Back Pain, Chronic, Fracture, Other (See Below) Other Musculoskeletal History: ulcers to bilat feet. R & L gt toes, 3rd toe R foot, 3& 5th toes L foot. Numerous broken bones, R rotator cuff, restless legs Neurological History: Reports: Concussion, Head Trauma, Migraines, Neuropathy, Peripheral, Other (See Below) Other Neuro History: Pt stated he has had many concussions and some brain hemorraging. About 30 years ago. Feels like this may be part of some mental illness. Psychiatric History: Reports: Anxiety, Bipolar, Depression, Psych Hospitalization(s), Suicide Attempt Endocrine/Metabolic History: Reports: Diabetes, Type II, Hypothyroidism, Obesity /BMI 30+ Other Endocrine/Metabolic History: diagnosed about 1 year ago Other Dermatologic History: ulcers to bilat feet. R & L gt toes, 3rd toe R foot , 3& 5th toes L foot. Open wound L gt toe 'months.' - Past Surgical History HEENT Surgical History: Reports: Adenoidectomy, Tonsillectomy GI Surgical History: Reports: None Musculoskeletal Surgical History: Reports: Amputation, Other (See Below) Other Musculoskeletal Surgeries/Procedures:: R shoulder rotator cuff surg, carpal tunnel, R rotator cuff amputation, L achilles tendon repair Social & Family History - Family History Family Medical History: Noncontributory - Tobacco Use Smoking Status *Q: Current Every Day Smoker Years of Tobacco use: 30 Packs/Tins Daily: 1 - Caffeine Use Caffeine Use: Reports: Soda - Recreational Drug Use Recreational Drug Use: No - Living Situation & Occupation Occupation: Disabled ED ROS GENERAL - Review of Systems Review Of Systems: Unable To Obtain Reason Not Obtained: guarded ED EXAM, SKIN/RASH Exam: See Below Exam Limited By: Other (guarded) General Appearance: Alert, WD/WN, Mild Distress Eye Exam: Bilateral Eye: EOMI, Normal Inspection, PERRL Ears: Normal External Exam, Normal Canal, Normal TMs Nose: Normal Inspection, Normal Mucosa, No Blood Throat/Mouth: Normal Inspection, Normal Gums, Normal Oropharynx, No Airway Compromise Head: Facial Swelling, Facial Tenderness (anterior to R ear, palpable soft tissue swelling with mild erythema; no parotid swelling) Neck: Supple, Full Range of Motion, Lymphadenopathy (R) (tender anterior R lymphadenitis) Respiratory/Chest: Lungs Clear Cardiovascular: Regular Rate, Rhythm, No Murmur GI/Abdominal: Normal Bowel Sounds, Soft, Non-Tender, No Organomegaly, No Distention (Male) Exam: Deferred Rectal (Males) Exam: Deferred Back Exam: Normal Inspection Extremities: Other (toes deformed, with chronic appearing lesions) Psychiatric: Flat Affect, Other (guarded) Skin: Warm, Dry, Zoster-Like Rash (2 cm lesion overlying R hoahaoism, tender, mild erythema, no vesicular eruption) Course - Vital Signs Text/Narrative:: Lesion suspicious for HZ, could not rule out MRSA at this time. Last Recorded V/S: Last Vital Signs Temp 36.8 C 02/24/19 15:38 Pulse 94 02/24/19 15:38 Resp 18 02/24/19 15:38 BP 126/84 02/24/19 15:38 Pulse Ox 97 02/24/19 15:38 Departure - Departure Time of Disposition: 16:35 Disposition: Home, Self-Care 01 Condition: Fair Clinical Impression: Cellulitis Qualifiers: Site of cellulitis: extremity Site of cellulitis of extremity: finger Laterality: left Qualified Code(s): L03.012 - Cellulitis of left finger Shingles rash Qualifiers: Herpes zoster complications: with other complications Qualified Code(s): B02.8 - Zoster with other complications - Discharge Information Referrals: Bambi Esquivel SHUTTLE DRIVER [Primary Care Provider] - - Problem List & Annotations (1) Cellulitis SNOMED Code(s): 424153081 Code(s): L03.90 - CELLULITIS, UNSPECIFIED Status: Acute Priority: Medium Current Visit: Yes Annotation/Comment:: I will empirically dispense Bactrim DS bid for 10 days. Qualifiers: Site of cellulitis: extremity Site of cellulitis of extremity: finger Laterality: left Qualified Code(s): L03.012 - Cellulitis of left finger (2) Shingles rash SNOMED Code(s): 1850499 Code(s): B02.9 - ZOSTER WITHOUT COMPLICATIONS Status: Acute Current Visit : Yes Annotation/Comment:: I will empirically dispense Valtrex 1 gm tid for a week. Qualifiers: Herpes zoster complications: with other complications Qualified Code(s): B02.8 - Zoster with other complications - Problem List Review Problem List Initiated/Reviewed/Updated: Yes - Assessment/Plan Plan: Follow up with PCP.
[2019-02-24 16:49] VITALS: BP 123/86; PULSE 83
== END 2019-02-24 16:41 | disposition home or self-care (01) ==
LOC: FB.ED 15:34
DX: L03.012 Cellulitis of left finger (principal); B02.8 Zoster with other complications; E78.00 Pure hypercholesterolemia, unspecified; E66.9 Obesity, unspecified; E03.9 Hypothyroidism, unspecified; E11.42 Type 2 diabetes mellitus with diabetic polyneuropathy; F32.9 Major depressive disorder, single episode, unspecified; F17.210 Nicotine dependence, cigarettes, uncomplicated; Z79.899 Other long term (current) drug therapy; Z68.32 Body mass index [BMI] 32.0-32.9, adult; Z79.890 Hormone replacement therapy
CPT/HCPCS: 99283

== ENCOUNTER 2019-11-27 16:15 | Emergency (ER) | payer MEDICARE, MEDICAID ==
[2019-11-27] MEDS ORDERED: Cyclobenzaprine 10 MG Tab PO ONE (16:16)
[2019-11-27] MEDS ORDERED: Ketorolac 60 MG/2 ML SDV IM ONE (17:02)
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
[2019-11-27 20:48] VITALS: BP 136/93; PULSE 76
== END 2019-11-27 18:28 | disposition home or self-care (01) ==
LOC: FB.ED 16:15
DX: M62.830 Muscle spasm of back (principal); F41.9 Anxiety disorder, unspecified; F31.9 Bipolar disorder, unspecified; E11.9 Type 2 diabetes mellitus without complications; E03.9 Hypothyroidism, unspecified; E66.9 Obesity, unspecified; G43.909 Migraine, unspecified, not intractable, without status migrainosus; Z68.29 Body mass index [BMI] 29.0-29.9, adult; Z79.899 Other long term (current) drug therapy
CPT/HCPCS: 36415; 80048; 85025; 96372; 99283; A9270; J1885

== ENCOUNTER 2020-03-22 23:26 | Emergency (ER) | payer MEDICARE, MEDICAID ==
[2020-03-22] MEDS ORDERED: traMADol 50 MG Tab PO ONE (23:27)
[2020-03-22] MEDS ORDERED: Sodium Chloride 0.9% 10 ML Syringe FLUSH PRN (23:38)
--- NOTE | 2020-03-22 23:57 | EDM.PDOC ---
ED HPI GENERAL MEDICAL PROBLEM - General Stated Complaint: UNRESPONSIVE Time Seen by Provider: 03/22/20 23:52 Source of Information: Reports: Patient, EMS Notes Reviewed, Police History Limitations: Reports: Altered Mental Status - History of Present Illness INITIAL COMMENTS - FREE TEXT/NARRATIVE: Rashad was brought by ambulance after he was found unresponsive. He called 911 with complains of dizziness,and sweating. He was given some chest compressions initially but remained unresponsive albeit with normal vital signs. In the Ed,he was able to wake up and did complain of Left Lower Quadrant abd pain. He has a long history that incudes back [facility] and [facility]. Several bottles of his Meds were found around him,including Flexeril left lower quadrant/abdomen Pain Score (Numeric/FACES): 2 - Related Data Allergies Allergy/AdvReac Type Severity Reaction Status Date / Time No Known Allergies Allergy Verified 03/23/20 00:12 Home Meds: Home Meds Levothyroxine [Synthroid] 50 mcg PO DAILY@0600 12/28/16 [History] Venlafaxine HCl [Venlafaxine ER] 300 cap PO DAILY 12/28/16 [History] rOPINIRole [Requip] 3 mg PO BID 12/28/16 [History] Acetaminophen [Tylenol] 650 mg PO Q4H PRN tablet 04/26/17 [Rx] Sulfamethoxazole/Trimethoprim [Bactrim 400-80 MG] 1 each PO BID #20 tablet 02/24/19 [Rx] valACYclovir [Valtrex] 1,000 mg PO TID 7 Days #21 tablet 02/24/19 [Rx] Cyclobenzaprine [Flexeril] 10 mg PO TID PRN #30 tab 11/27/19 [Rx] Ibuprofen 800 mg PO Q8H PRN #30 tablet 11/27/19 [Rx] Tamsulosin HCl [Flomax] 0.4 mg PO DAILY #10 cap.er.24h 03/23/20 [Rx] Past Medical History HEENT History: Reports: Head Other HEENT History: Pt has slight pimple type bump on the back of his neck and when he became conscious and alert complained of pain. Cardiovascular History: Reports: High Cholesterol Other Cardiovascular History: high triglycerides Musculoskeletal History: Reports: Arthritis, Back Pain, Chronic, Fracture, Other (See Below) Other Musculoskeletal History: ulcers to bilat feet. R & L gt toes, 3rd toe R foot, 3& 5th toes L foot. Numerous broken bones, R rotator cuff, restless legs Neurological History: Reports: Concussion, Head Trauma, Migraines, Neuropathy, Peripheral, Other (See Below) Other Neuro History: Pt stated he has had many concussions and some brain hemorraging. About 30 years ago. Feels like this may be part of some mental illness. Psychiatric History: Reports: Anxiety, Bipolar, Depression, Psych Hospitalization(s), Suicide Attempt Endocrine/Metabolic History: Reports: Diabetes, Type II, Hypothyroidism, Obesity/BMI 30+ Other Endocrine/Metabolic History: diagnosed about 1 year ago Other Dermatologic History: ulcers to bilat feet. R & L gt toes, 3rd toe R foot, 3& 5th toes L foot. Open wound L gt toe 'months.' - Past Surgical History HEENT Surgical History: Reports: Adenoidectomy, Tonsillectomy GI Surgical History: Reports: None Musculoskeletal Surgical History: Reports: Amputation, Other (See Below) Other Musculoskeletal Surgeries/Procedures:: R shoulder rotator cuff surg, carpal tunnel, R rotator cuff amputation, L achilles tendon repair Social & Family History - Family History Family Medical History: No Pertinent Family History - Caffeine Use Caffeine Use: Reports: Soda - Living Situation & Occupation Occupation: Disabled ED ROS GENERAL - Review of Systems Review Of Systems: Comprehensive ROS is negative, except as noted in HPI. - Physical Exam Exam: See Below Exam Limited By: Altered Mental Status General Appearance: Lethargic Ears: Normal External Exam Nose: Normal Inspection Throat/Mouth: Normal Inspection Head Exam: Atraumatic, Normocephalic Neck: Normal Inspection Respiratory/Chest: No Respiratory Distress, Lungs Clear Cardiovascular: Normal Peripheral Pulses, No JVD GI/Abdominal: Normal Bowel Sounds, Tender (RLQ) (Male) Exam: Deferred Neuro Exam (Abbreviated): Alert, Oriented, CN II-XII Intact Back Exam: Normal Inspection Psychiatric: Normal Affect Skin Exam: Warm Course - Vital Signs Last Recorded V/S: Last Vital Signs Temp 97.3 F 03/22/20 23:26 Pulse 92 03/22/20 23:26 Resp 19 03/22/20 23:26 BP 136/86 03/22/20 23:26 Pulse Ox 96 03/22/20 23:26 - Orders/Labs/Meds Labs: Laboratory Tests 03/22/20 03/22/20 03/22/20 Range/Units 23:40 23:40 23:40 WBC 7.0 (3.2-10.1) x10-3/uL RBC 4.69 (3.90-5.90) x10(6)uL Hgb 14.3 (12.9-17.7) g/dL Hct 43.1 (38.3-50.1) % MCV 91.9 (80.8-98.7) fL MCH 30.4 (27.0-33.3) pg MCHC 33.1 (28.7-35.3) g/dL RDW 13.1 (12.4-15.0) % Plt Count 256 (117-477) x10(3)uL MPV 8.1 (6.7-11.0) fL Neut % (Auto) 55.5 (40.3-71.8) % Lymph % (Auto) 30.6 (15.8-45.3) % [place] % (Auto) 9.6 (5.5-15.2) % Eos % (Auto) 3.8 (0.1-6.8) % Baso % (Auto) 0.5 (0.3-3.8) % Neut # (Auto) 3.9 (1.7-6.9) x10-3/uL Lymph # (Auto) 2.1 (0.5-4.5) x10-3/uL [place] # (Auto) 0.7 (0.0-1.2) x10-3/uL Eos # (Auto) 0.3 (0.0-0.6) x10-3/uL Baso # (Auto) 0.0 (0.0-0.3) x10-3/uL Sodium 139 (135-145) mmol/L Potassium 3.6 (3.5-5.3) mmol/L Chloride 101 (100-110) mmol/L Carbon Dioxide 27 (21-32) mmol/L BUN 17 (7-18) mg/dL Creatinine 1.0 (0.70-1.30) mg/dL Est Cr Clr Drug Dosing TNP Estimated GFR (MDRD) > 60 (>60) BUN/Creatinine Ratio 17.0 (9-20) Glucose 161 H (80-116) mg/dL Calcium 8.6 (8.6-10.2) mg/dL Total Bilirubin 0.4 (0.1-1.3) mg/dL AST 28 H D (5-25) IU/L ALT 44 H (12-36) U/L Alkaline Phosphatase 64 (56-112) IU/L Troponin I 6.9 (4.0-60.3) pg/mL Total Protein 7.1 (6.0-8.0) g/dL Albumin 3.6 (3.5-5.2) g/dL Globulin 3.5 g/dL Albumin/Globulin Ratio 1.0 Urine Color (YELLOW) Urine Appearance (CLEAR) Urine pH (5.0-6.5) Ur Specific [place] (1.010-1.025) Urine Protein (NEGATIVE) mg/dL Urine Glucose (UA) (NORMAL) mg/dL Urine Ketones (NEGATIVE) mg/dL Urine Occult Blood (NEGATIVE) Urine Nitrite (NEGATIVE) Urine Bilirubin (NEGATIVE) Urine Urobilinogen (NEGATIVE) mg/dL Ur Leukocyte Esterase (NEGATIVE) Urine RBC (0-5) Urine WBC (0-5) Ur Squamous Epith Cells (NS,R,O) Urine Bacteria (NS) Salicylates 3.2 (<2.8) mg/dL Urine Opiates Screen (NEGATIVE) Ur Oxycodone Screen (NEGATIVE) Ur Propoxyphene Screen (NEGATIVE) Acetaminophen < 2 L (<2) ug/mL Ur Barbituates Screen (NEGATIVE) Ur Tricyclics Screen (NEGATIVE) Ur Phencyclidine Scrn (NEGATIVE) Ur Amphetamine Screen (NEGATIVE) Urine MDMA Screen (NEGATIVE) U Benzodiazepines Scrn (NEGATIVE) U Cocaine Metab Screen (NEGATIVE) U Marijuana (THC) Screen (NEGATIVE) Ethyl Alcohol < 0.03 (<0.03) % 03/23/20 03/23/20 Range/Units 02:35 02:35 WBC (3.2-10.1) x10-3/uL RBC (3.90-5.90) x10(6)uL Hgb (12.9-17.7) g/dL Hct (38.3-50.1) % MCV (80.8-98.7) fL MCH (27.0-33.3) pg MCHC (28.7-35.3) g/dL RDW (12.4-15.0) % Plt Count (117-477) x10(3)uL MPV (6.7-11.0) fL Neut % (Auto) (40.3-71.8) % Lymph % (Auto) (15.8-45.3) % [place] % (Auto) (5.5-15.2) % Eos % (Auto) (0.1-6.8) % Baso % (Auto) (0.3-3.8) % Neut # (Auto) (1.7-6.9) x10-3/uL Lymph # (Auto) (0.5-4.5) x10-3/uL [place] # (Auto) (0.0-1.2) x10-3/uL Eos # (Auto) (0.0-0.6) x10-3/uL Baso # (Auto) (0.0-0.3) x10-3/uL Sodium (135-145) mmol/L Potassium (3.5-5.3) mmol/L Chloride (100-110) mmol/L Carbon Dioxide (21-32) mmol/L BUN (7-18) mg/dL Creatinine (0.70-1.30) mg/dL Est Cr Clr Drug Dosing Estimated GFR (MDRD) (>60) BUN/Creatinine Ratio (9-20) Glucose (80-116) mg/dL Calcium (8.6-10.2) mg/dL Total Bilirubin (0.1-1.3) mg/dL AST (5-25) IU/L ALT (12-36) U/L Alkaline Phosphatase (56-112) IU/L Troponin I (4.0-60.3) pg/mL Total Protein (6.0-8.0) g/dL Albumin (3.5-5.2) g/dL Globulin g/dL Albumin/Globulin Ratio Urine Color Yellow (YELLOW) Urine Appearance Slightly cloudy (CLEAR) Urine pH 6.0 (5.0-6.5) Ur Specific [place] 1.030 H (1.010-1.025) Urine Protein Negative (NEGATIVE) mg/dL Urine Glucose (UA) Normal (NORMAL) mg/dL Urine Ketones Negative (NEGATIVE) mg/dL Urine Occult Blood Large H (NEGATIVE) Urine Nitrite Negative (NEGATIVE) Urine Bilirubin Negative (NEGATIVE) Urine Urobilinogen Normal (NEGATIVE) mg/dL Ur Leukocyte Esterase Negative (NEGATIVE) Urine RBC 5-10 H (0-5) Urine WBC 0-5 (0-5) Ur Squamous Epith Cells Occasional (NS,R,O) Urine Bacteria Few H (NS) Salicylates (<2.8) mg/dL Urine Opiates Screen Negative (NEGATIVE) Ur Oxycodone Screen Negative (NEGATIVE) Ur Propoxyphene Screen Negative (NEGATIVE) Acetaminophen (<2) ug/mL Ur Barbituates Screen Negative (NEGATIVE) Ur Tricyclics Screen Negative (NEGATIVE) Ur Phencyclidine Scrn Negative (NEGATIVE) Ur Amphetamine Screen Negative (NEGATIVE) Urine MDMA Screen Negative (NEGATIVE) U Benzodiazepines Scrn Negative (NEGATIVE) U Cocaine Metab Screen Negative (NEGATIVE) U Marijuana (THC) Screen Negative (NEGATIVE) Ethyl Alcohol (<0.03) % Meds: Medications Discontinued Medications Generic Name Dose Route Start Last Admin Trade Name Freq PRN Reason Stop Dose Admin Sodium Chloride 1,000 mls @ 999 mls/hr 03/23/20 00:45 03/23/20 01:10 Normal Saline IV 999 mls/hr ASDIRECTED MADHU Administration Sodium Chloride 1,000 mls @ 999 mls/hr 03/23/20 00:45 Normal Saline IV ASDIRECTED MADHU Ketorolac Tromethamine 30 mg 03/23/20 00:44 03/23/20 01:08 Toradol IVPUSH 03/23/20 00:45 30 mg ONETIME ONE Administration Sodium Chloride 10 ml 03/22/20 23:38 03/23/20 01:00 Saline Flush FLUSH 10 ml ASDIRECTED PRN Administration Keep Vein Open Tramadol HCl 200 mg 03/22/20 23:27 Ultram PO 03/22/20 23:28 .STK-MED ONE Departure - Departure Time of Disposition: 19:37 Disposition: Home, Self-Care 01 Condition: Good Clinical Impression: Kidney calculi - Discharge Information Prescriptions: Tamsulosin HCl [Flomax] 0.4 mg PO DAILY #10 cap.er.24h Instructions: Kidney Stones Referrals: PCP,None [Primary Care Provider] - 2 Days Forms: ED Department Discharge Additional Instructions: Take Tramadol 1 tablet every 8 hours as needed for pain. Flomax 1 tablet daily. Drink plenty of water and avoid soda. Follow up with your primary care provider as needed. Call if you have any questions or come back to the ER if signs and symptoms get acutely worse. - Problem List & Annotations (1) LLQ pain SNOMED Code(s): 073588308 Code(s): R10.32 - LEFT LOWER QUADRANT PAIN Status: Acute (2) Unresponsive episode SNOMED Code(s): 094480608 Code(s): R41.89 - OTH SYMPTOMS AND SIGNS W COGNITIVE FUNCTIONS AND AWARENESS Status: Acute (3) Musculoskeletal pain SNOMED Code(s): 807202252 Code(s): M79.18 - MYALGIA, OTHER SITE Status: Acute (4) Kidney calculi SNOMED Code(s): 03413779 Code(s): N20.0 - CALCULUS OF KIDNEY Status: Acute - Problem List Review Problem List Initiated/Reviewed/Updated: Yes - Assessment/Plan Plan: CT abd pelvis showed a 3 mm Kidney stone. . Labs normal. Will give him 1 L Normal saline,toradol and DC home on [place]. Follow up with PCP. Kalen also sent with.
[2020-03-23 00:10] LABS: ACETAMINOPHEN < 2 ug/mL (<2)
[2020-03-23] MEDS ORDERED: Ketorolac 30 MG/ML SDV IVPUSH ONE (00:44)
[2020-03-23] MEDS ORDERED: Sodium Chloride 0.9% 1,000 ML IV SCH ×2 (00:45)
[2020-03-23 05:46] VITALS: BP 136/86; PULSE 92
== END 2020-03-23 03:00 | disposition home or self-care (01) ==
LOC: FB.ED 23:26
DX: N13.2 Hydronephrosis with renal and ureteral calculous obstruction (principal); E11.9 Type 2 diabetes mellitus without complications; E03.9 Hypothyroidism, unspecified; E66.9 Obesity, unspecified; F41.9 Anxiety disorder, unspecified; F31.9 Bipolar disorder, unspecified; Z90.49 Acquired absence of other specified parts of digestive tract; Z79.899 Other long term (current) drug therapy; Z68.29 Body mass index [BMI] 29.0-29.9, adult
CPT/HCPCS: 36415; 70450; 74176; 80053; 80305; 80307; 81001; 84484; 85025; 93005; 96374; 99283; 99285; A9270; J1885; J7030

== ENCOUNTER 2020-09-28 17:09 | Emergency (ER) | payer MEDICARE, MEDICAID ==
[2020-09-28] MEDS ORDERED: Acetaminophen/oxyCODONE 325-5 MG Tab PO ONE (17:10)
[2020-09-28] MEDS ORDERED: Sodium Chloride 0.9% 10 ML Syringe FLUSH PRN (17:11)
[2020-09-28] MEDS ORDERED: Morphine 4 MG/ML VIAL IVPUSH STA (17:11)
[2020-09-28] MEDS ORDERED: Ketorolac 30 MG/ML SDV IVPUSH STA (17:11)
[2020-09-28] MEDS ORDERED: Sodium Chloride 0.9% 1,000 ML IV SCH (17:15)
[2020-09-28] MEDS ORDERED: HYDROmorphone 2 MG/ML SDV IVPUSH STA (17:37)
[2020-09-28] MEDS ORDERED: Tamsulosin 0.4 MG Cap.ER PO STA (17:41)
[2020-09-28 18:01] VITALS: BP 138/110; PULSE 72
--- NOTE | 2020-09-28 18:52 | EDM.PDOC ---
ED HPI GENERAL MEDICAL PROBLEM - General Chief Complaint: Abdominal Pain Stated Complaint: ABDOMINAL PAIN Time Seen by Provider: 09/28/20 17:15 Source of Information: Reports: Patient History Limitations: Reports: No Limitations - History of Present Illness INITIAL COMMENTS - FREE TEXT/NARRATIVE: Patient presented to the ED because of left flank pain. He had a uereteral placement placed at [facility] yesterday and today it hurts so bad. The pain is sharp,10/10. There is no fever,chills, nausea or vomiting. Left Upper Abdominal Pain Score (Numeric/FACES): 10 - Related Data Allergies Allergy/AdvReac Type Severity Reaction Status Date / Time No Known Allergies Allergy Verified 03/23/20 00:12 Home Meds: Home Meds Levothyroxine [Synthroid] 50 mcg PO DAILY@0600 12/28/16 [History] Venlafaxine HCl [Venlafaxine ER] 300 cap PO DAILY 12/28/16 [History] rOPINIRole [Requip] 3 mg PO BID 12/28/16 [History] Acetaminophen [Tylenol] 650 mg PO Q4H PRN tablet 04/26/17 [Rx] Sulfamethoxazole/Trimethoprim [Bactrim 400-80 MG] 1 each PO BID #20 tablet 02/24/19 [Rx] valACYclovir [Valtrex] 1,000 mg PO TID 7 Days #21 tablet 02/24/19 [Rx] Cyclobenzaprine [Flexeril] 10 mg PO TID PRN #30 tab 11/27/19 [Rx] Ibuprofen 800 mg PO Q8H PRN #30 tablet 11/27/19 [Rx] Tamsulosin HCl [Flomax] 0.4 mg PO DAILY #10 cap.er.24h 03/23/20 [Rx] Acetaminophen/oxyCODONE [Percocet 325-5 MG] 1 each PO Q4H PRN #15 tab 09/28/20 [Rx] Past Medical History HEENT History: Reports: Head Other HEENT History: Pt has slight pimple type bump on the back of his neck and when he became conscious and alert complained of pain. Dental caries. Cardiovascular History: Reports: High Cholesterol Other Cardiovascular History: high triglycerides Musculoskeletal History: Reports: Arthritis, Back Pain, Chronic, Fracture, Other (See Below) Other Musculoskeletal History: ulcers to bilat feet. R & L gt toes, 3rd toe R foot, 3& 5th toes L foot. Numerous broken bones, R rotator cuff, restless legs Neurological History: Reports: Concussion, Head Trauma, Migraines, Neuropathy, Peripheral, Other (See Below) Other Neuro History: Pt stated he has had many concussions and some brain hemorraging. About 30 years ago. Feels like this may be part of some mental illness. Psychiatric History: Reports: Anxiety, Bipolar, Depression, Psych Hospitalization(s), Suicide Attempt Endocrine/Metabolic History: Reports: Diabetes, Type II, Hypothyroidism, Obesity/BMI 30+ Other Endocrine/Metabolic History: diagnosed about 1 year ago Other Dermatologic History: ulcers to bilat feet. R & L gt toes, 3rd toe R foot, 3& 5th toes L foot. Open wound L gt toe 'months.' - Past Surgical History HEENT Surgical History: Reports: Adenoidectomy, Tonsillectomy GI Surgical History: Reports: None Musculoskeletal Surgical History: Reports: Amputation, Other (See Below) Other Musculoskeletal Surgeries/Procedures:: R shoulder rotator cuff surg, carpal tunnel, R rotator cuff amputation, L achilles tendon repair Social & Family History - Family History Family Medical History: No Pertinent Family History - Caffeine Use Caffeine Use: Reports: Soda - Living Situation & Occupation Occupation: Disabled ED ROS GENERAL - Review of Systems Review Of Systems: See Below Constitutional: Reports: No Symptoms HEENT: Reports: No Symptoms Respiratory: Reports: No Symptoms Cardiovascular: Reports: No Symptoms Endocrine: Reports: No Symptoms GI/Abdominal: Reports: Abdominal Pain : Reports: No Symptoms Musculoskeletal: Reports: No Symptoms Skin: Reports: No Symptoms Neurological: Reports: No Symptoms ED EXAM, GI/ABD - Physical Exam Exam: See Below Exam Limited By: No Limitations General Appearance: Alert, No Apparent Distress Ears: Normal External Exam, Normal Canal, Hearing Grossly Normal Nose: Normal Inspection, Normal Mucosa, No Blood Throat/Mouth: Normal Inspection, Normal Lips, Normal Teeth Head: Atraumatic, Normocephalic Neck: Normal Inspection, Supple, Non-Tender, Full Range of Motion Respiratory/Chest: No Respiratory Distress, Lungs Clear, Normal Breath Sounds Cardiovascular: Normal Peripheral Pulses, Regular Rate, Rhythm, No Edema, No Gallop, No JVD, No Murmur, No Rub GI/Abdominal Exam: Normal Bowel Sounds, Soft, No Organomegaly, No Distention, No Abnormal Bruit, Other (LCVAT) Back Exam: Normal Inspection, Full Range of Motion Extremities: Normal Inspection, Normal Range of Motion, Non-Tender Course - Vital Signs Text/Narrative:: Labt/CT result was reviewed and discussed with patient NS 1 L bolus Morphine 4 mg IV x1 Toradol 30 mg IV x1 Dilaudid 2 mg IV x1 Last Recorded V/S: Last Vital Signs Temp Pulse 72 09/28/20 17:09 Resp 20 09/28/20 17:09 BP 138/110 H 09/28/20 17:09 Pulse Ox 98 09/28/20 17:09 - Orders/Labs/Meds Orders: Active Orders 24 hr Category Date Time Status Abdomen Pelvis wo Cont [CT] Stat Exams 09/28/20 17:39 Taken Saline Lock Insert [OM.PC] Routine Oth 09/28/20 17:11 Ordered Labs: Laboratory Tests 09/28/20 09/28/20 Range/Units 17:17 17:17 WBC 8.1 (3.2-10.1) x10-3/uL RBC 4.12 (3.90-5.90) x10(6)uL Hgb 12.9 (12.9-17.7) g/dL Hct 38.3 (38.3-50.1) % MCV 92.9 (80.8-98.7) fL MCH 31.2 (27.0-33.3) pg MCHC 33.6 (28.7-35.3) g/dL RDW 13.6 (12.4-15.0) % Plt Count 301 (117-477) x10(3)uL MPV 7.6 (6.7-11.0) fL Neut % (Auto) 62.4 (40.3-71.8) % Lymph % (Auto) 25.6 (15.8-45.3) % Thomas % (Auto) 9.6 (5.5-15.2) % Eos % (Auto) 2.1 (0.1-6.8) % Baso % (Auto) 0.3 (0.3-3.8) % Neut # (Auto) 5.0 (1.7-6.9) x10-3/uL Lymph # (Auto) 2.1 (0.5-4.5) x10-3/uL Thomas # (Auto) 0.8 (0.0-1.2) x10-3/uL Eos # (Auto) 0.2 (0.0-0.6) x10-3/uL Baso # (Auto) 0.0 (0.0-0.3) x10-3/uL Sodium 145 (135-145) mmol/L Potassium 4.6 D (3.5-5.3) mmol/L Chloride 108 D (100-110) mmol/L Carbon Dioxide 28 (21-32) mmol/L BUN 21 H (7-18) mg/dL Creatinine 1.2 (0.70-1.30) mg/dL Est Cr Clr Drug Dosing TNP Estimated GFR (MDRD) > 60 (>60) BUN/Creatinine Ratio 17.5 (9-20) Glucose 142 H (80-116) mg/dL Calcium 8.5 L (8.6-10.2) mg/dL Meds: Medications Discontinued Medications Generic Name Dose Route Start Last Admin Trade Name Freq PRN Reason Stop Dose Admin Hydromorphone HCl 2 mg 09/28/20 17:37 09/28/20 18:25 Hydromorphone 2 Mg/Ml Sdv IVPUSH 09/28/20 17:38 2 mg NOW STA Administration Sodium Chloride 1,000 mls @ 999 mls/hr 09/28/20 17:15 09/28/20 17:20 Normal Saline IV 999 mls/hr ASDIRECTED MADHU Administration Ketorolac Tromethamine 30 mg 09/28/20 17:11 09/28/20 17:23 Ketorolac 30 Mg/Ml Sdv IVPUSH 09/28/20 17:12 30 mg NOW STA Administration Morphine Sulfate 4 mg 09/28/20 17:11 09/28/20 17:22 Morphine 4 Mg/Ml Vial IVPUSH 09/28/20 17:12 4 mg NOW STA Administration Sodium Chloride 10 ml 09/28/20 17:11 Sodium Chloride 0.9% 10 Ml Syringe FLUSH ASDIRECTED PRN Keep Vein Open Tamsulosin HCl 0.8 mg 09/28/20 17:41 09/28/20 18:25 Tamsulosin 0.4 Mg Cap.Er PO 09/28/20 17:42 0.8 mg NOW STA Administration Departure - Departure Time of Disposition: 18:45 Disposition: Home, Self-Care 01 Condition: Good Clinical Impression: Nephrolithiasis - Discharge Information Prescriptions: Acetaminophen/oxyCODONE [Percocet 325-5 MG] 1 each PO Q4H PRN #15 tab PRN Reason: Pain Instructions: Kidney Stones, [id number], Renal Colic, [id number] Referrals: PCP,Unknown [Ordering Only Provider] - Forms: ED Department Discharge Additional Instructions: Please read discharge instructions on Kidney stone Drink at least 2-3 liters of water a day Take your flomax until gone Percocet 5/325, 1-2 tablets every 4-6 hours as needed for pain If it hurts bad again and the medicines don't help ,go directly to [facility] Follow up as needed Sepsis Event Note (ED) - Evaluation Sepsis Screening Result: No Definite Risk - My Orders Last 24 Hours: My Active Orders 09/28/20 17:11 Saline Lock Insert [OM.PC] Routine 09/28/20 17:39 Abdomen Pelvis wo Cont [CT] Stat - Assessment/Plan Last 24 Hours: My Active Orders 09/28/20 17:11 Saline Lock Insert [OM.PC] Routine 09/28/20 17:39 Abdomen Pelvis wo Cont [CT] Stat
== END 2020-09-28 19:06 | disposition home or self-care (01) ==
LOC: FB.ED 17:09
DX: N13.2 Hydronephrosis with renal and ureteral calculous obstruction (principal); E78.00 Pure hypercholesterolemia, unspecified; E11.9 Type 2 diabetes mellitus without complications; E03.9 Hypothyroidism, unspecified; E66.9 Obesity, unspecified; Z68.30 Body mass index [BMI] 30.0-30.9, adult
CPT/HCPCS: 36415; 74176; 80048; 85025; 96374; 96375; 99283; 99285-25; A9270-GY; J1170; J1885; J2270; J7030

== ENCOUNTER 2021-02-16 16:03 | Emergency (ER) | payer MEDICARE, MEDICAID ==
--- NOTE | 2021-02-16 17:03 | EDM.PDOC ---
ED HPI GENERAL MEDICAL PROBLEM - General Stated Complaint: SUICIDAL Time Seen by Provider: 02/16/21 16:05 Source of Information: Reports: Patient - History of Present Illness INITIAL COMMENTS - FREE TEXT/NARRATIVE: c/o suicidal ideation says he does not want to live, that he wants to , not taking his meds seen in clinic, sent to ED by Bambi Escalante via EMS for psychiatric workup and admission h/o bipolar and TBI lives alone, had pain in his left flank, admitted [facility] 5d ago and had lactic acid 4, came down to 2 colonoscopy done, biopsies done, microscopic colitis vs ischemic colitis is being considered pt denies pain now pt states no alc/cigs/street drugs never had COVID vax or COVID illness CBC 5d ago with low WBC and lymph predominance, suggesting possible COVID Generalized Pain Score (Numeric/FACES): 5 - Related Data Allergies Allergy/AdvReac Type Severity Reaction Status Date / Time No Known Allergies Allergy Verified 03/23/20 00:12 Home Meds: Home Meds Levothyroxine [Synthroid] 50 mcg PO DAILY@0600 12/28/16 [History] Venlafaxine HCl [Venlafaxine ER] 300 cap PO DAILY 12/28/16 [History] rOPINIRole [Requip] 3 mg PO BID 12/28/16 [History] Acetaminophen [Tylenol] 650 mg PO Q4H PRN tablet 04/26/17 [Rx] Sulfamethoxazole/Trimethoprim [Bactrim 400-80 MG] 1 each PO BID #20 tablet 02/24 [Rx] valACYclovir [Valtrex] 1,000 mg PO TID 7 Days #21 tablet 02/24/19 [Rx] Cyclobenzaprine [Flexeril] 10 mg PO TID PRN #30 tab 11/27/19 [Rx] Ibuprofen 800 mg PO Q8H PRN #30 tablet 11/27/19 [Rx] Tamsulosin HCl [Flomax] 0.4 mg PO DAILY #10 cap.er.24h 03/23/20 [Rx] Acetaminophen/oxyCODONE [Percocet 325-5 MG] 1 each PO Q4H PRN #15 tab 09/28/20 [Rx] Past Medical History HEENT History: Reports: Head Other HEENT History: Pt has slight pimple type bump on the back of his neck and when he became conscious and alert complained of pain. Dental caries. Cardiovascular History: Reports: High Cholesterol Other Cardiovascular History: high triglycerides Musculoskeletal History: Reports: Arthritis, Back Pain, Chronic, Fracture, Other (See Below) Other Musculoskeletal History: ulcers to bilat feet. R & L gt toes, 3rd toe R foot, 3& 5th toes L foot. Numerous broken bones, R rotator cuff, restless legs Neurological History: Reports: Concussion, Head Trauma, Migraines, Neuropathy, Peripheral, Other (See Below) Other Neuro History: Pt stated he has had many concussions and some brain hemorraging. About 30 years ago. Feels like this may be part of some mental illness. Psychiatric History: Reports: Anxiety, Bipolar, Depression, Psych Hospitalization(s), Suicide Attempt Endocrine/Metabolic History: Reports: Diabetes, Type II, Hypothyroidism, Obesity/BMI 30+ Other Endocrine/Metabolic History: diagnosed about 1 year ago Other Dermatologic History: ulcers to bilat feet. R & L gt toes, 3rd toe R foot, 3& 5th toes L foot. Open wound L gt toe 'months.' - Past Surgical History HEENT Surgical History: Reports: Adenoidectomy, Tonsillectomy GI Surgical History: Reports: None Musculoskeletal Surgical History: Reports: Amputation, Other (See Below) Other Musculoskeletal Surgeries/Procedures:: R shoulder rotator cuff surg, carpal tunnel, R rotator cuff amputation, L achilles tendon repair Social & Family History - Family History Family Medical History: No Pertinent Family History - Caffeine Use Caffeine Use: Reports: Soda - Living Situation & Occupation Occupation: Disabled ED ROS GENERAL - Review of Systems Review Of Systems: See Below Constitutional: Reports: No Symptoms HEENT: Reports: No Symptoms Respiratory: Reports: No Symptoms Cardiovascular: Reports: No Symptoms Endocrine: Reports: No Symptoms GI/Abdominal: Reports: No Symptoms : Reports: No Symptoms Musculoskeletal: Reports: No Symptoms Skin: Reports: No Symptoms Neurological: Reports: No Symptoms Psychiatric: Reports: Suicidal Ideation Hematologic/Lymphatic: Reports: No Symptoms Immunologic: Reports: No Symptoms ED EXAM, GENERAL - Physical Exam Exam: See Below General Appearance: Alert, WD/WN, Other (sitting on ED of bed, rocks a little at time, staring ahead, nods to answers most questions, orthewise not speaking, not making eye contact, flat affect) Eye Exam: Bilateral Eye: EOMI Ears: Hearing Grossly Normal Nose: Normal Inspection, Normal Mucosa, No Blood Throat/Mouth: Normal Inspection, Normal Lips, Normal Voice, No Airway Compromise Head: Atraumatic, Normocephalic Neck: Normal Inspection, Supple, Non-Tender, Full Range of Motion. No: Lymphadenopathy (R), Lymphadenopathy (L) Respiratory/Chest: No Respiratory Distress, Lungs Clear, Normal Breath Sounds, No Accessory Muscle Use, Chest Non-Tender Cardiovascular: Regular Rate, Rhythm, No Edema, No Murmur GI/Abdominal: Normal Bowel Sounds, Soft, Non-Tender, Other (inc'd adipose tissue) Back Exam: Normal Inspection, Full Range of Motion. No: CVA Tenderness (R), CVA Tenderness (L) Extremities: Normal Inspection, Normal Range of Motion, Non-Tender, No Pedal Edema Neurological: Alert, Oriented, CN II-XII Intact, Normal Cognition, No Motor/Sensory Deficits Psychiatric: Depressed Mood, Flat Affect, Other (sits stiffly, not verbalizing to me, told nurse several times that he did not want to live) Skin Exam: Warm, Dry, Intact, Normal Color, No Rash Lymphatic: No Adenopathy #1 Interpretation EKG Date: 02/16/21 Time: 17:34 Rhythm: NSR Rate (Beats/Min): 89 Nunnelly: Normal P-Wave: Present QRS: Normal ST-T: Normal QT: Normal (normal EKG, no ST/ischemic changes) Course - Vital Signs Last Recorded V/S: Last Vital Signs Temp 36.6 C 02/17/21 04:30 Pulse 82 02/17/21 09:30 Resp 16 02/17/21 09:30 BP 115/87 02/17/21 09:30 Pulse Ox 93 L 02/17/21 09:30 - Orders/Labs/Meds Orders: Active Orders 24 hr Category Date Time Status Abdomen 2V AP Flat Upright [CR] Stat Exams 02/16/21 16:48 Taken Chest 2V [CR] Stat Exams 02/16/21 16:48 Ordered COVID-19 SARS COV-2 AB, IGG Routine Lab 02/16/21 17:10 Received COVID-19 SARS COV-2 AB, IGM Routine Lab 02/16/21 17:10 Received ziprasidone HCL [Geodon] Med 02/17/21 21:00 Active 20 mg PO BEDTIME EKG 12 Lead [EK] Routine Ther 02/16/21 16:48 Ordered Medication Orders Ziprasidone (Ziprasidone Hcl 20 Mg Cap) 20 mg PO BEDTIME MADHU Last Admin: 02/17/21 04:34 Dose: 20 mg Documented by: ANGIE Labs: Laboratory Tests 02/16/21 02/16/21 02/16/21 Range/Units 17:10 17:10 17:10 WBC 5.5 (3.2-10.1) x10-3/uL RBC 4.71 (3.90-5.90) x10(6)uL Hgb 14.1 (12.9-17.7) g/dL Hct 42.4 (38.3-50.1) % MCV 90.0 (80.8-98.7) fL MCH 30.0 (27.0-33.3) pg MCHC 33.3 (28.7-35.3) g/dL RDW 14.3 (12.4-15.0) % Plt Count 284 (117-477) x10(3)uL MPV 7.6 (6.7-11.0) fL Neut % (Auto) 53.8 (40.3-71.8) % Lymph % (Auto) 28.6 (15.8-45.3) % Moore % (Auto) 13.3 (5.5-15.2) % Eos % (Auto) 3.7 (0.1-6.8) % Baso % (Auto) 0.6 (0.3-3.8) % Neut # (Auto) 3.0 (1.7-6.9) x10-3/uL Lymph # (Auto) 1.6 (0.5-4.5) x10-3/uL Moore # (Auto) 0.7 (0.0-1.2) x10-3/uL Eos # (Auto) 0.2 (0.0-0.6) x10-3/uL Baso # (Auto) 0.0 (0.0-0.3) x10-3/uL Sodium 140 (135-145) mmol/L Potassium 4.0 (3.5-5.3) mmol/L Chloride 104 (100-110) mmol/L Carbon Dioxide 28 (21-32) mmol/L BUN 20 H (7-18) mg/dL Creatinine 1.0 (0.70-1.30) mg/dL Est Cr Clr Drug Dosing TNP Estimated GFR (MDRD) > 60 (>60) BUN/Creatinine Ratio 20.0 (9-20) Glucose 162 H (80-116) mg/dL Lactic Acid (0.4-2.0) mmol/L Calcium 8.9 (8.6-10.2) mg/dL Total Bilirubin 0.5 (0.1-1.3) mg/dL AST 58 H D (5-25) IU/L ALT 161 H* D (12-36) U/L Alkaline Phosphatase 63 (56-112) IU/L Troponin I 7.5 (4.0-60.3) pg/mL C-Reactive Protein < 0.2 L (0.5-0.9) mg/dL Total Protein 7.2 (6.0-8.0) g/dL Albumin 3.8 (3.5-5.2) g/dL Globulin 3.4 g/dL Albumin/Globulin Ratio 1.1 TSH, Ultra Sensitive 6.24 H (0.36-3.74) IU/mL Urine Color (YELLOW) Urine Appearance (CLEAR) Urine pH (5.0-6.5) Ur Specific Kinsman (1.010-1.025) Urine Protein (NEGATIVE) mg/dL Urine Glucose (UA) (NORMAL) mg/dL Urine Ketones (NEGATIVE) mg/dL Urine Occult Blood (NEGATIVE) Urine Nitrite (NEGATIVE) Urine Bilirubin (NEGATIVE) Urine Urobilinogen (NEGATIVE) mg/dL Ur Leukocyte Esterase (NEGATIVE) Urine RBC (0-5) Urine WBC (0-5) Ur Squamous Epith Cells (NS,R,O) Urine Bacteria (NS) Salicylates 1.2 L (<2.8) mg/dL Urine Opiates Screen (NEGATIVE) Ur Buprenorphine Scrn (NEGATIVE) Ur Oxycodone Screen (NEGATIVE) Urine Methadone Screen (NEGATIVE) Ur Propoxyphene Screen (NEGATIVE) Acetaminophen < 2 L (<2) ug/mL Ur Barbiturates Screen (NEGATIVE) Ur Tricyclics Screen (NEGATIVE) Ur Phencyclidine Scrn (NEGATIVE) Ur Amphetamine Screen (NEGATIVE) U Methamphetamines Scrn (NEGATIVE) U Benzodiazepines Scrn (NEGATIVE) U Cocaine Metab Screen (NEGATIVE) U Marijuana (THC) Screen (NEGATIVE) Ethyl Alcohol < 0.03 (<0.03) % SARS-CoV-2 RNA (ARIA) (NEGATIVE) 02/16/21 02/16/21 02/16/21 Range/Units 17:10 17:40 17:40 WBC (3.2-10.1) x10-3/uL RBC (3.90-5.90) x10(6)uL Hgb (12.9-17.7) g/dL Hct (38.3-50.1) % MCV (80.8-98.7) fL MCH (27.0-33.3) pg MCHC (28.7-35.3) g/dL RDW (12.4-15.0) % Plt Count (117-477) x10(3)uL MPV (6.7-11.0) fL Neut % (Auto) (40.3-71.8) % Lymph % (Auto) (15.8-45.3) % Moore % (Auto) (5.5-15.2) % Eos % (Auto) (0.1-6.8) % Baso % (Auto) (0.3-3.8) % Neut # (Auto) (1.7-6.9) x10-3/uL Lymph # (Auto) (0.5-4.5) x10-3/uL Moore # (Auto) (0.0-1.2) x10-3/uL Eos # (Auto) (0.0-0.6) x10-3/uL Baso # (Auto) (0.0-0.3) x10-3/uL Sodium (135-145) mmol/L Potassium (3.5-5.3) mmol/L Chloride (100-110) mmol/L Carbon Dioxide (21-32) mmol/L BUN (7-18) mg/dL Creatinine (0.70-1.30) mg/dL Est Cr Clr Drug Dosing Estimated GFR (MDRD) (>60) BUN/Creatinine Ratio (9-20) Glucose (80-116) mg/dL Lactic Acid 0.6 (0.4-2.0) mmol/L Calcium (8.6-10.2) mg/dL Total Bilirubin (0.1-1.3) mg/dL AST (5-25) IU/L ALT (12-36) U/L Alkaline Phosphatase (56-112) IU/L Troponin I (4.0-60.3) pg/mL C-Reactive Protein (0.5-0.9) mg/dL Total Protein (6.0-8.0) g/dL Albumin (3.5-5.2) g/dL Globulin g/dL Albumin/Globulin Ratio TSH, Ultra Sensitive (0.36-3.74) IU/mL Urine Color Yellow (YELLOW) Urine Appearance Clear (CLEAR) Urine pH 5.0 (5.0-6.5) Ur Specific Kinsman 1.030 H (1.010-1.025) Urine Protein Negative (NEGATIVE) mg/dL Urine Glucose (UA) Normal (NORMAL) mg/dL Urine Ketones Negative (NEGATIVE) mg/dL Urine Occult Blood Negative (NEGATIVE) Urine Nitrite Negative (NEGATIVE) Urine Bilirubin Negative (NEGATIVE) Urine Urobilinogen Normal (NEGATIVE) mg/dL Ur Leukocyte Esterase Negative (NEGATIVE) Urine RBC 0-5 (0-5) Urine WBC 0-5 (0-5) Ur Squamous Epith Cells Rare (NS,R,O) Urine Bacteria Few H (NS) Salicylates (<2.8) mg/dL Urine Opiates Screen Negative (NEGATIVE) Ur Buprenorphine Scrn Negative (NEGATIVE) Ur Oxycodone Screen Negative (NEGATIVE) Urine Methadone Screen Negative (NEGATIVE) Ur Propoxyphene Screen Negative (NEGATIVE) Acetaminophen (<2) ug/mL Ur Barbiturates Screen Negative (NEGATIVE) Ur Tricyclics Screen Negative (NEGATIVE) Ur Phencyclidine Scrn Negative (NEGATIVE) Ur Amphetamine Screen Negative (NEGATIVE) U Methamphetamines Scrn Negative (NEGATIVE) U Benzodiazepines Scrn Negative (NEGATIVE) U Cocaine Metab Screen Negative (NEGATIVE) U Marijuana (THC) Screen Negative (NEGATIVE) Ethyl Alcohol (<0.03) % SARS-CoV-2 RNA (ARIA) (NEGATIVE) 02/16/21 Range/Units 17:55 WBC (3.2-10.1) x10-3/uL RBC (3.90-5.90) x10(6)uL Hgb (12.9-17.7) g/dL Hct (38.3-50.1) % MCV (80.8-98.7) fL MCH (27.0-33.3) pg MCHC (28.7-35.3) g/dL RDW (12.4-15.0) % Plt Count (117-477) x10(3)uL MPV (6.7-11.0) fL Neut % (Auto) (40.3-71.8) % Lymph % (Auto) (15.8-45.3) % Moore % (Auto) (5.5-15.2) % Eos % (Auto) (0.1-6.8) % Baso % (Auto) (0.3-3.8) % Neut # (Auto) (1.7-6.9) x10-3/uL Lymph # (Auto) (0.5-4.5) x10-3/uL Moore # (Auto) (0.0-1.2) x10-3/uL Eos # (Auto) (0.0-0.6) x10-3/uL Baso # (Auto) (0.0-0.3) x10-3/uL Sodium (135-145) mmol/L Potassium (3.5-5.3) mmol/L Chloride (100-110) mmol/L Carbon Dioxide (21-32) mmol/L BUN (7-18) mg/dL Creatinine (0.70-1.30) mg/dL Est Cr Clr Drug Dosing Estimated GFR (MDRD) (>60) BUN/Creatinine Ratio (9-20) Glucose (80-116) mg/dL Lactic Acid (0.4-2.0) mmol/L Calcium (8.6-10.2) mg/dL Total Bilirubin (0.1-1.3) mg/dL AST (5-25) IU/L ALT (12-36) U/L Alkaline Phosphatase (56-112) IU/L Troponin I (4.0-60.3) pg/mL C-Reactive Protein (0.5-0.9) mg/dL Total Protein (6.0-8.0) g/dL Albumin (3.5-5.2) g/dL Globulin g/dL Albumin/Globulin Ratio TSH, Ultra Sensitive (0.36-3.74) IU/mL Urine Color (YELLOW) Urine Appearance (CLEAR) Urine pH (5.0-6.5) Ur Specific Kinsman (1.010-1.025) Urine Protein (NEGATIVE) mg/dL Urine Glucose (UA) (NORMAL) mg/dL Urine Ketones (NEGATIVE) mg/dL Urine Occult Blood (NEGATIVE) Urine Nitrite (NEGATIVE) Urine Bilirubin (NEGATIVE) Urine Urobilinogen (NEGATIVE) mg/dL Ur Leukocyte Esterase (NEGATIVE) Urine RBC (0-5) Urine WBC (0-5) Ur Squamous Epith Cells (NS,R,O) Urine Bacteria (NS) Salicylates (<2.8) mg/dL Urine Opiates Screen (NEGATIVE) Ur Buprenorphine Scrn (NEGATIVE) Ur Oxycodone Screen (NEGATIVE) Urine Methadone Screen (NEGATIVE) Ur Propoxyphene Screen (NEGATIVE) Acetaminophen (<2) ug/mL Ur Barbiturates Screen (NEGATIVE) Ur Tricyclics Screen (NEGATIVE) Ur Phencyclidine Scrn (NEGATIVE) Ur Amphetamine Screen (NEGATIVE) U Methamphetamines Scrn (NEGATIVE) U Benzodiazepines Scrn (NEGATIVE) U Cocaine Metab Screen (NEGATIVE) U Marijuana (THC) Screen (NEGATIVE) Ethyl Alcohol (<0.03) % SARS-CoV-2 RNA (ARIA) Negative (NEGATIVE) Meds: Medications Generic Name Dose Route Start Last Admin Trade Name Freq PRN Reason Stop Dose Admin Ziprasidone 20 mg 02/17/21 21:00 02/17/21 04:34 Ziprasidone Hcl 20 Mg Cap PO 20 mg BEDTIME MADHU Administration - Re-Assessments/Exams Free Text/Narrative Re-Assessment/Exam: 02/16/21 18:36 ua and urine drug screen pending labs fairly unremarkable, lactic acid wnl, inc'd AST/ALT are nonspecific, cbc is WNL will have [facility] do an evaluation KUB, 2v, is essentially neg on prelim ED read, no obstruction, no AFL, there is moderate amount of stool in the right colon and average amount of stool in the left colon and pelvis CxR 2v is neg in prelim ED read 02/17/21 12:55 accepted by Franklin Willard at 12:45, pt slept soundly last night after accepting Geodon 20 mg PO, alert and cooperative today Departure - Departure Time of Disposition: 12:56 Disposition: DC/Tfer to Psych Hosp/Unit 65 Clinical Impression: Acute psychosis, Suicidal ideation - Discharge Information *PRESCRIPTION DRUG MONITORING PROGRAM REVIEWED*: Not Applicable *COPY OF PRESCRIPTION DRUG MONITORING REPORT IN PATIENT FAVIAN: Not Applicable Referrals: Bambi Esquivel, [employer] [Primary Care Provider] - Sepsis Event Note (ED) - Focused Exam Vital Signs: Vital Signs Temp Pulse Resp BP Pulse Ox 02/17/21 09:30 82 16 115/87 93 L 02/17/21 04:30 36.6 C 78 18 132/92 H 95 - My Orders Last 24 Hours: My Active Orders 02/16/21 16:48 Abdomen 2V AP Flat Upright [CR] Stat Chest 2V [CR] Stat EKG 12 Lead [EK] Routine 02/16/21 17:10 COVID-19 SARS COV-2 AB, IGG Routine COVID-19 SARS COV-2 AB, IGM Routine 02/17/21 21:00 ziprasidone HCL [Geodon] 20 mg PO BEDTIME - Assessment/Plan Last 24 Hours: My Active Orders 02/16/21 16:48 Abdomen 2V AP Flat Upright [CR] Stat Chest 2V [CR] Stat EKG 12 Lead [EK] Routine 02/16/21 17:10 COVID-19 SARS COV-2 AB, IGG Routine COVID-19 SARS COV-2 AB, IGM Routine 02/17/21 21:00 ziprasidone HCL [Geodon] 20 mg PO BEDTIME
[2021-02-16 18:29] LABS: ACETAMINOPHEN < 2 ug/mL (<2)
[2021-02-17] MEDS ORDERED: Ziprasidone HCl 20 MG Cap PO SCH (21:00)
[2021-02-17 21:51] VITALS: BP 109/81; PULSE 80
== END 2021-02-17 13:55 ==
LOC: FB.ED 16:03
DX: R45.851 Suicidal ideations (principal); F23 Brief psychotic disorder; E11.9 Type 2 diabetes mellitus without complications; E03.9 Hypothyroidism, unspecified; E66.9 Obesity, unspecified; Z68.33 Body mass index [BMI] 33.0-33.9, adult; Z79.899 Other long term (current) drug therapy; Z20.822 Contact with and (suspected) exposure to COVID-19
CPT/HCPCS: 36415; 71046; 74019; 80053; 80143; 80179; 80307; 81001; 83605; 84443; 84484; 85025; 86140; 86769; 93005; 99285; A9270; U0002

== ENCOUNTER 2022-07-02 02:44 | Emergency (ER) | payer MEDICARE ==
[2022-07-02] MEDS ORDERED: traMADol 50 MG Tab PO ONE ×3 (02:45→04:36)
[2022-07-02] MEDS ORDERED: Sodium Chloride 0.9% 10 ML Syringe FLUSH PRN (03:17)
[2022-07-02] MEDS ORDERED: Sodium Chloride 0.9% 1,000 ML IV SCH (03:45)
[2022-07-02 03:47] LABS: ESTIMATED GFR 88 mL/min (>60)
[2022-07-02 04:01] LABS: CORONAVIRUS COVID-19 NAA NEGATIVE (NEGATIVE)
[2022-07-02] MEDS ORDERED: Amoxicillin/Clavulanate K 875-125 MG Tab PO ONE (04:36)
[2022-07-02 05:35] VITALS: BP 122/89; PULSE 100
== END 2022-07-02 05:20 | disposition home or self-care (01) ==
LOC: FB.ED 02:44
DX: R07.89 Other chest pain (principal); J40 Bronchitis, not specified as acute or chronic; E11.9 Type 2 diabetes mellitus without complications; E66.9 Obesity, unspecified; Z68.41 Body mass index [BMI] 40.0-44.9, adult; Z88.8 Allergy status to other drugs, medicaments and biological substances; Z20.822 Contact with and (suspected) exposure to COVID-19
CPT/HCPCS: 0241U; 36415; 71045; 80053; 83605; 84484; 85025; 85379; 86140; 93005; 96360; 96361; 99283; 99285; A9270; J3490; J7030